=== PATIENT | female | born 1935 | race Caucasian/White ===

== ENCOUNTER 2017-10-01 13:12 | Emergency (ER) | payer MEDICARE ==
--- NOTE | 2017-10-01 16:17 | CT ---
CT BRAIN 10/01/17 PROVIDED CLINICAL HISTORY: Head pain status post injury. FINDINGS: No comparisons. The ventricular system appears normal in size and morphology. There is no evidence for intracranial hemorrhage or mass effect. Chronic microvascular ischemic changes are seen. The extracranial soft tis sues and osseous structures demonstrate no acute findings. IMPRESSION: No evidence for intracranial hemorrhage or mass effect. POS: [facility]
== END 2017-10-01 15:00 | disposition home or self-care (01) ==
LOC: ERS 13:12
DX: S00.511A Abrasion of lip, initial encounter (principal); S80.01XA Contusion of right knee, initial encounter; K21.9 Gastro-esophageal reflux disease without esophagitis; I10 Essential (primary) hypertension; F03.90 Unspecified dementia, unspecified severity, without behavioral disturbance, psychotic disturbance, mood disturbance, and anxiety; F41.9 Anxiety disorder, unspecified; F32.9 Major depressive disorder, single episode, unspecified; Z79.899 Other long term (current) drug therapy; W18.09XA Striking against other object with subsequent fall, initial encounter
CPT/HCPCS: 70450

== ENCOUNTER 2019-06-26 01:33 | Emergency (ER) | payer MEDICARE ==
[2019-06-26] MEDS ORDERED: Bacitracin 1 PK ONE (02:39)
--- NOTE | 2019-06-26 07:28 | RAD ---
EXAM: 3 views of the right hand COMPARISON: None HISTORY: Hand pain FINDINGS: 3 views of the hand shows no evidence of acute fracture or dislocation. Mild degenerative c hanges are seen in the interphalangeal joints of the fingers and in the first CMC joint. No soft tissue swelling is present. IMPRESSION: No evidence of acute osseous abnormality.
--- NOTE | 2019-06-26 08:08 | CT ---
PRELIMINARY REPORT/[facility]/EMERGENCY AFTER HOURS PROCEDURE: EXAM: CT Head Without Intravenous Contrast. CLINICAL HISTORY: Pt slipped and fell at [place] today with skin tear to right hand. 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 COMPARISON: None provided. FINDINGS: BRAIN: No acute intraparenchymal hemorrhage. No mass lesion. No CT evidence for acute territorial inf arct. No midline shift or extra-axial collection. Scattered and confluent periventricular and subcortical white matter hypodensities most compatible wi th chronic small vessel ischemic changes. There is focal hypodensity in the left occipital lobe sugg esting gliosis from old prior infarct and ex vacuo dilatation of the occipital horn of the left later al ventricle. Possible old lacunar infarct in the right basal ganglia. VENTRICLES: No hydrocephalus. Diffuse symmetric enlargement of the ventricles and sulci compatible w ith age-related cerebral atrophy, moderate for age. ORBITS: The orbits are unremarkable. SINUSES AND MASTOIDS: The paranasal sinuses and mastoid air cells are clear. SOFT TISSUES: No significant facial or scalp soft tissue swelling evident. No radiopaque foreign body is seen. BONES: No acute skull fracture. IMPRESSION: 1. No acute intracranial abnormality. No acute intracranial hemorrhage. 2. 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 3. Age-related cerebral atrophy and evidence of chronic microvascular ischemic change. ELECTRONICALLY SIGNED BY: Sidney Lunsford M.D. 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 If you recei ve this report in error, please call [facility] at [phone]. FINAL REPORT EMERGENT AFTER HOURS CT OF THE BRAIN WITHOUT CONTRAST: COMPARISON: 10/01/2017. FINDINGS/IMPRESSION: I agree with the findings and impression given in the preliminary report per [facility] physici an. Small-vessel ischemic disease without acute intracranial abnormality. POS: [facility]
== END 2019-06-26 03:24 ==
LOC: ERS 01:33
DX: S61.401A Unspecified open wound of right hand, initial encounter (principal); F03.90 Unspecified dementia, unspecified severity, without behavioral disturbance, psychotic disturbance, mood disturbance, and anxiety; I49.9 Cardiac arrhythmia, unspecified; I48.91 Unspecified atrial fibrillation; I10 Essential (primary) hypertension; K21.9 Gastro-esophageal reflux disease without esophagitis; F41.9 Anxiety disorder, unspecified; F32.9 Major depressive disorder, single episode, unspecified; Z79.899 Other long term (current) drug therapy; Z79.01 Long term (current) use of anticoagulants; W01.0XXA Fall on same level from slipping, tripping and stumbling without subsequent striking against object, initial encounter
CPT/HCPCS: 70450

== ENCOUNTER 2019-07-08 14:06 | Inpatient (IN) | payer BC, MEDICARE ==
--- NOTE | 2019-07-08 14:39 | CT ---
CT BRAIN NONCONTRAST: DATE: 07/08/2019 HISTORY: 84-year-old female status post acute head trauma from fall. COMPARISON: FINDINGS: There is no evidence of acute intra-axial or extra-axial hemorrhage. There is no midline shift or any other mass effect. There is no extra-axial fluid collection. There is no evidence of obstructive hydrocephalus. Calvarium is intact. There is diffuse brain parenchymal volume loss. There are low att enuation areas in the white matter. These are nonspecific, but in a patient of this age, they are probably chronic ischemic white matter changes due to microvascular atherosclerosis. Questionable sma ll old left occipital infarction versus a symmetrical region of chronic ischemic white matter change. Tiny old lacunar infarction at anterior limb of right internal capsule. No interval change ov erall. IMPRESSION: 1) No acute intracranial findings. 2) involutional changes and chronic ischemic white matter changes.
[2019-07-08] MEDS ORDERED: Senokot S 8.6-50 MG TAB PO PRN (19:21)
[2019-07-08] MEDS ORDERED: hydrALAZINE 20 MG/ML VIAL SLOW IVP PRN (21:35)
[2019-07-08] MEDS ORDERED: Famotidine 20 MG TAB ONE (21:52)
[2019-07-08] MEDS ORDERED: hydrALAZINE 20 MG/ML VIAL ONE (21:52)
[2019-07-08] MEDS: Famotidine 20 MG TAB PO SCH (21:59)
--- NOTE | 2019-07-08 22:11 | CT ---
CT Brain WO Con: 07/08/2019 10:00 PM CLINICAL HISTORY: Fall. IMAGING TECHNIQUE: Multiple CT images were obtained of the brain without IV contrast. COMPARISON: July 08, 2019 at 2:30 PM FINDINGS: Brain: No acute infarct, hemorrhage or midline shift is evident. Chronic ischemic changes similar ap pearing. Generalized cerebral and cerebellar atrophy is stable. Ventricles: Normal. No hydrocephalus. Skull: Intact. Visualized Paranasal sinuses: Clear. Mastoid air cells:Clear. Extracranial soft tissues:There is stable right frontal scalp contusion. IMPRESSION: No acute intracranial abnormality.
--- NOTE | 2019-07-09 00:40 | HP ---
CHIEF COMPLAINT: Head injury. PRIMARY CARE PHYSICIAN: Pan Briggs MD. HISTORY OF PRESENT ILLNESS: Ms. Garcia is a very pleasant 84-year-old, pleasantly confused female who was brought to the emergency room via EMS after she had a witnessed fall from her bed, transferring to a wheelchair. Hit the right occipital lobe on her dresser. No loss of consciousness. Does have a history of AFib and is on Eliquis. She denies any pain. Denies any nausea, vomiting, at baseline a and O x2 with no change of mental status. She does have a contusion to the scalp. No headache. Has an old skin tear to the right hand. Initial CT scan showed no acute findings. The patient will be admitted to observation for a repeat CT scan due to the patient being on Eliquis. REVIEW OF SYSTEMS: CONSTITUTIONAL: The patient denies any chills, fever. Denies any headache. Does report some minor change in vision, which is transient. ENT: Denies any sore throat. RESPIRATORY: Denies any cough. GI: Denies any abdominal pain, nausea, vomiting, diarrhea. Denies any dysuria. All other systems are reviewed and are negative unless mentioned above or in HPI. PAST MEDICAL HISTORY: Has an atrial defect, atrial fib, GERD, hypertension, dementia, osteoporosis. PAST SURGICAL HISTORY: Had a hysterectomy, some sort of cardiac possibly an ablation although family and patient were unsure. PSYCHIATRIC HISTORY: Anxiety, depression, dementia. SOCIAL HISTORY: Denies any alcohol or drug use. No smoking history. Lives at [facility]. PHYSICAL EXAMINATION: VITAL SIGNS: Blood pressure 160/89, pulse is 94, respiratory rate is 20, temperature is 98, pO2 sats are 95% on room air. GENERAL: The patient is alert. She is oriented to person and place. HEAD: Has a hematoma to the right occipital region. Normocephalic. EYES: Pupils equal, round, and reactive to light. Eyelids are normal to inspection. ENT: Mouth exam is normal. Mucous membranes are moist. NECK: Normal range of motion. Trachea is midline. RESPIRATORY/CHEST: Breath sounds are clear. Chest expansion is equal. CARDIOVASCULAR: Irregularly irregular. Heart sounds are normal. ABDOMEN: Nontender. Bowel sounds are heard. EXTREMITIES: Upper extremity; normal range of motion. No bony tenderness. Has a chronic right dorsal hand skin tear. Caregiver in the room reports that she HAD THIS ON A PRIOR INJURY. Lower extremity; normal range of motion. Motor strength is normal. Pedal pulses are normal. NEURO: The patient is oriented to person and place. Speech is normal. She is pleasantly confused. SKIN: Warm, dry, normal in color which is visualized. ALLERGIES: THE PATIENT IS ALLERGIC TO AMIODARONE, AUGMENTIN, BYSTOLIC, OMNICEF, PROPAFENONE. CURRENT MEDICATIONS: Which still need to be verified; 1. Protonix 40 mg 1 tablet once a day. 2. Flonase b.i.d. 3. Exelon patch 9.5 mg daily. 4. Eliquis 2.5 mg p.o. b.i.d. 5. Atorvastatin 10 mg p.o. once a day. 6. Tramadol 1 tab q.6 hours. 7. Vitamin B12 of 1000 mcg daily. 8. Melatonin 10 mg p.o. once a day. 9. Zofran 4 mg p.o. as needed. 10. Meclizine 12.5 mg p.o. b.i.d. 11. Premarin vaginal 3 times per week. 12. Robitussin 100 mg p.o. once a day. 13. Seroquel 25 mg p.o. once a day. 14. Tessalon 100 mg as needed. 15. Tylenol 500 mg p.o. q.8 hours as needed. 16. Xanax 0.25 once a day as needed. 17. Zoloft 25 mg p.o. once a day. PLAN AND ASSESSMENT: 1. Head injury, closed, on Eliquis. We will admit the patient to the observation unit. We will repeat the CT scan in 6 hours. Perform neuro checks q.4 hours. The patient remained stable and CT scan is negative. The patient most likely will be discharged home. 2. History of atrial fibrillation. This appears to be rate controlled. We will continue Eliquis once the CT scans are complete. 3. History of gastroesophageal reflux disease. We will continue home medications. 4. History of dementia. We will continue home medications. Check CBC comprehensive metabolic in the morning. Also check the urine. The patient had a urinary tract infection appears several weeks ago. We will make sure that it is clear. 5. Deep venous thrombosis and gastrointestinal prophylaxis, restart Eliquis once CT scans are completed. 6. Hospital course dependent on clinical findings. Job ID: [id number]
[2019-07-09 06:42] LABS: #Basophils 0.1 thou/uL (0.0-0.2); #Eosinphils 0.1 thou/uL (0.0-0.7); #Lymphocytes 1.9 thou/uL (1.20-3.40); #Monocytes 0.6 thou/uL (0.11-0.59); #Neutrophils 7.6 thou/uL (1.40-6.50); %Basophils 0.6 % (0.0-1.0); %Eosinophils 0.7 % (0.0-10.0); %Lymphocytes 18.5 % (21.0-51.0); %Monocytes 6.2 % (0.0-10.0); Mean Corpuscular Hemoglobin 31.9 pg (27.0-31.0); Mean Corpuscular Volume 99.8 fL (78.0-98.0); Mean Platelet Volume 6.4 fL (7.4-10.4); Platelet Count 362 thou/uL (130-400); RBC Distribution Width 11.8 % (11.5-14.5); Red Blood Cell (RBC) Count 4.39 mill/uL (4.20-5.40); White Blood Cell (WBC) Count 10.3 thou/uL (4.8-10.8)
[2019-07-09 06:59] LABS: Anion Gap 16 mmol/L (10-20); BUN (Urea Nitrogen) 10 mg/dL (9.8-20.1); Calc. Creatinine Clearance 0 mL/min (70-130); Calcium 9.2 mg/dL (7.8-10.44); Carbon Dioxide 21 mmol/L (23-31); Chloride 106 mmol/L (98-107); Estimated GFR-MDRD 80; Glucose 102 mg/dL (83-110); Potassium 3.3 mmol/L (3.5-5.1); Sodium 140 mmol/L (136-145)
[2019-07-09] MEDS ORDERED: Famotidine 20 MG TAB ONE (10:11)
[2019-07-09] MEDS: Famotidine 20 MG TAB PO SCH ×2 (10:14→20:37)
[2019-07-09] MEDS ORDERED: Potassium Chloride 20 MEQ TAB PO SCH (10:15)
--- NOTE | 2019-07-09 10:16 | PDOC.HOSPP ---
- Subjective Encounter Date: 07/09/19 Encounter Time: 11:00 Subjective: Patient with some dry heaves this AM. Demented and can't say anything besides that she feels bad. - Objective Result Diagrams: 07/09/19 06:23 07/09/19 06:23 Hospitalist ROS - Review of Systems ROS unobtainable: due to mental status - Medication Medications: Active Medications Generic Name Dose Route Start Last Admin Trade Name Freq PRN Reason Stop Dose Admin Famotidine 20 mg 07/08/19 21:00 07/09/19 10:14 Pepcid PO 20 mg BID MANISH Administration - Exam General Appearance: NAD, awake alert ENT: moist mucosa Heart: RRR, no murmur, no gallops, no rubs Respiratory: CTAB, no wheezes, no rales, no ronchi Gastrointestinal: soft, non-tender, non-distended, normal bowel sounds Skin: normal turgor, no lesions, no rashes Neurological: no focal deficits Psychiatric: normal affect, not oriented Hosp A/P (1) Head injury Code(s): S09.90XA - UNSPECIFIED INJURY OF HEAD, INITIAL ENCOUNTER Status: Acute (2) Atrial fibrillation Code(s): I48.91 - UNSPECIFIED ATRIAL FIBRILLATION Status: Acute (3) Chronic anticoagulation Code(s): Z79.01 - FEDERAL AGENT (CURRENT) USE OF ANTICOAGULANTS Status: Acute (4) GERD (gastroesophageal reflux disease) Code(s): K21.9 - GASTRO-ESOPHAGEAL REFLUX DISEASE WITHOUT ESOPHAGITIS Status: Chronic (5) Dementia Code(s): F03.90 - UNSPECIFIED DEMENTIA WITHOUT BEHAVIORAL DISTURBANCE Status: Chronic - Plan repeat CT head negative last night, but with new symptoms of nausea and vomiting today, will repeat CT scan. Patient likely has a concussion.
[2019-07-09 10:53] LABS: Bilirubin Negative (Negative); Blood, Urine Negative (Negative); Clarity Clear (Clear); Glucose, Urine (Dipstick) Normal (Negative); Leukocyte Negative Leu/uL (Negative); Nitrite Negative (Negative); Protein, Urine (Dipstick) 100 mg/dL (Neg-Trace); RBC/HPF 0-3 HPF (0-3); Squamous Epithelial None Seen HPF (0-3); Urobilinogen Normal mg/dL (Less than 2); WBC/HPF 0-3 HPF (0-3)
[2019-07-09 10:56] LABS: Bacteria/HPF 1+ HPF (None Seen)
[2019-07-09 10:57] LABS: Urine Culture Reflex Yes Yes
[2019-07-09] MEDS ORDERED: Ondansetron ODT 4 MG TAB ONE (11:00)
[2019-07-09] MEDS ORDERED: Pantoprazole 40 MG VIAL IVP SCH ×2 (11:00→12:00)
[2019-07-09] MEDS ORDERED: Pantoprazole 40 MG VIAL ONE (11:00)
[2019-07-09] MEDS: Ondansetron ODT 4 MG TAB PO PRN ×2 (11:08→20:37)
[2019-07-09] MEDS ORDERED: Sodium Chloride 0.9% (PF) 10 ML VIAL FS PRN (11:09)
--- NOTE | 2019-07-09 14:34 | CT ---
CT BRAIN WITHOUT CONTRAST: Date 07/09/2019 INDICATION: History of trauma, on blood thinners, with new onset nausea and vomiting. COMPARISON: Prior exam dated 07/08/2019 at 2202 hours. FINDINGS: No acute infarct, hemorrhage, or hydrocephalus is evident. Chronic small vessel white matter ischemic change is similar. Generalized cerebral and cerebellar atrophy is similar appearing. No midline shif t is evident. Mastoid air cells and paranasal sinuses are clear. There is a small right frontal scalp contusion. IMPRESSION: 1. No acute intracranial abnormality. 2. Right frontal scalp contusion. POS: [facility]
[2019-07-09 17:12] VITALS: BMI 22.2
--- NOTE | 2019-07-10 08:40 | PDOC.HOSPP ---
- Subjective Encounter Date: 07/10/19 Encounter Time: 10:30 Subjective: Patient with continued vomiting yesterday, didn't hold anything down. Was given IV fluid bolus for her tachycardia and that is a bit better this AM, but still a little tachycardic. Vomited again this AM and hasn't tolerated oral fluids. Will start IV fluids. - Objective Vital Signs & Weight: Vital Signs (12 hours) Temp Pulse Resp BP Pulse Ox 07/10/19 07:48 98.6 F 99 18 158/99 H 96 07/10/19 04:00 97.2 F L 103 H 22 H 162/99 H 94 L 07/09/19 23:59 98.8 F 117 H 149/102 H 95 Weight Weight 121 lb 9.6 oz Result Diagrams: 07/09/19 06:23 07/09/19 06:23 Hospitalist ROS - Review of Systems ROS unobtainable: due to mental status - Medication Medications: Active Medications Generic Name Dose Route Start Last Admin Trade Name Freq PRN Reason Stop Dose Admin Famotidine 20 mg 07/08/19 21:00 07/09/19 20:37 Pepcid PO 20 mg BID MANISH Administration Ondansetron HCl 4 mg 07/09/19 10:58 07/09/19 20:37 Zofran Odt PO 4 mg Q6H PRN Administration Nausea/Vomiting - Exam General Appearance: NAD, awake alert Heart: RRR, no murmur, no gallops, no rubs Respiratory: CTAB, no wheezes, no rales, no ronchi Gastrointestinal: soft, non-tender, non-distended, normal bowel sounds Psychiatric: normal affect, not oriented Hosp A/P (1) Head injury Code(s): S09.90XA - UNSPECIFIED INJURY OF HEAD, INITIAL ENCOUNTER Status: Acute (2) Atrial fibrillation Code(s): I48.91 - UNSPECIFIED ATRIAL FIBRILLATION Status: Chronic (3) Chronic anticoagulation Code(s): Z79.01 - OIL WELL PUMPER (CURRENT) USE OF ANTICOAGULANTS Status: Chronic (4) GERD (gastroesophageal reflux disease) Code(s): K21.9 - GASTRO-ESOPHAGEAL REFLUX DISEASE WITHOUT ESOPHAGITIS Status: Chronic (5) Dementia Code(s): F03.90 - UNSPECIFIED DEMENTIA WITHOUT BEHAVIORAL DISTURBANCE Status: Chronic - Plan Patient with evidence of a concussion. Continued N/V and intolerance of oral fluids while on observation. Needed IV fluids yesterday and having to restart today. Will switch to inpatient status.
[2019-07-10] MEDS: Famotidine 20 MG TAB PO SCH (10:20)
[2019-07-10] MEDS: Ondansetron ODT 4 MG TAB PO PRN (10:20)
[2019-07-10] MEDS ORDERED: traMADol HCl 50 MG TAB PO PRN (10:40)
[2019-07-10] MEDS ORDERED: ONDANSETRON HCL 4 MG PO PRN (10:40)
[2019-07-10] MEDS ORDERED: Meclizine HCl 12.5 MG TAB PO PRN (10:40)
[2019-07-10] MEDS ORDERED: Benzonatate 100 MG CAP PO PRN (10:40)
[2019-07-10] MEDS ORDERED: Estrogens, Conjugated 30 GM TUBE VAG SCH (10:45)
[2019-07-10] MEDS ORDERED: Pantoprazole 40 MG VIAL IVP SCH (10:45)
[2019-07-10] MEDS ORDERED: Ondansetron ODT 4 MG TAB PO PRN (10:53)
[2019-07-10] MEDS ORDERED: Sodium Chloride 0.45% 1,000 ML IV SCH (11:00)
[2019-07-10 11:03] LABS: #Lymphocytes 1.1 thou/uL (1.20-3.40); #Monocytes 0.7 thou/uL (0.11-0.59); #Neutrophils 11.7 thou/uL (1.40-6.50); %Basophils 0.2 % (0.0-1.0); %Eosinophils 0.3 % (0.0-10.0); %Lymphocytes 7.9 % (21.0-51.0); %Monocytes 5.4 % (0.0-10.0); %Neutrophils 86.2 % (42.0-75.0); Hemoglobin 13.8 g/dL (12.0-16.0); Mean Corpuscular HGB CONC 32.8 g/dL (32.0-36.0); Mean Corpuscular Hemoglobin 32.4 pg (27.0-31.0); Mean Corpuscular Volume 98.7 fL (78.0-98.0); Mean Platelet Volume 6.5 fL (7.4-10.4); Platelet Count 326 thou/uL (130-400); Red Blood Cell (RBC) Count 4.27 mill/uL (4.20-5.40); White Blood Cell (WBC) Count 13.6 thou/uL (4.8-10.8)
[2019-07-10 11:16] LABS: ALT (SGPT) 14 U/L (8-55); AST (SGOT) 31 U/L (5-34); Albumin 4.1 g/dL (3.4-4.8); Alkaline Phosphatase 101 U/L (40-110); Anion Gap 11 mmol/L (10-20); BUN (Urea Nitrogen) 12 mg/dL (9.8-20.1); Bilirubin, Total 1.3 mg/dL (0.2-1.2); Calc. Creatinine Clearance 49 mL/min (70-130); Calcium 9.1 mg/dL (7.8-10.44); Carbon Dioxide 24 mmol/L (23-31); Chloride 106 mmol/L (98-107); Estimated GFR-MDRD 74; Globulin 3.1 g/dL (2.4-3.5); Glucose 125 mg/dL (83-110); Potassium 3.4 mmol/L (3.5-5.1); Protein, Total 7.2 g/dL (6.0-8.3); Sodium 138 mmol/L (136-145)
[2019-07-10] MEDS: Rivastigmine 9.5mg/24 Hour PATCH TOP SCH (12:01)
[2019-07-10] MEDS: ALPRAZolam 0.25 MG TAB PO PRN (13:22)
[2019-07-10] MEDS: Acetaminophen 325 MG TAB PO PRN (14:31)
[2019-07-10] MEDS ORDERED: Iopamidol 370 76% 100 ML VIAL ONE (14:49)
[2019-07-10] MEDS ORDERED: Sodium Chloride 0.9% 1,000 ML IV SCH (15:00)
[2019-07-10] MEDS ORDERED: Sodium Chloride 0.65% Nasal 44 ML BOT EA NARE SCH (15:00)
--- NOTE | 2019-07-10 15:30 | RAD ---
Chest AP view INDICATION: Fever COMPARISON: None FINDINGS: Lungs:The lungs are clear Cardiac silhouette:The patient is rotated to the left with associated thoracolumbar scoliosis centeri ng cardiomediastinal silhouette. There is mild suspected cardiomegaly. Pulmonary vasculature:Normal Pleural spaces:No pleural effusion or pneumothorax is demonstrated. Upper abdomen:No abnormality seen. Osseous structures: No acute osseous abnormality. Additional findings:None. IMPRESSION: Mild cardiomegaly without overt evidence of cardiac decompensation. Thoracolumbar scolios is.
--- NOTE | 2019-07-10 16:25 | PDOC.EVN ---
Event Note - Event Note Event Note: Called by nurse to see patient due to swelling anterior neck. Patient with significant swelling around the trachea and larnyx, soft, not warm, not red, no bruised. No swelling anywhere else. More on the left side. No bruising or skin breaks. Laryngeal cartilage has some crepitation with movement. Patient not in respiratory distress or obvious pain. Tachycardic. Fever improved. Concern for undiscovered trauma from fall prior to coming in. Could be hematoma with fracture. No airway compromise at this time. Infection from disrupted trachea or esophagus also possible. Again, no hx consistent with such an injury and no external trauma evidence aside from the contusion to the right top of head. Will place a cervical collar. Get stat CT neck and c-spine. Spoke with son and expressed the gravity of an injury like this and the possibility of progression , air way compromise, or cord injury. He expressed understanding. States most important thing is keeping her comfortable. Doesn't want intubation even if airway compromise, but keep comfortable. Remains DNAR. Will monitor closely and followup on imaging and lab.
[2019-07-10] MEDS ORDERED: Meropenem 1 GM in Sodium Chloride 0.9% 100 ML IVPB SCH (17:00)
[2019-07-10] MEDS: Vancomycin HCl 1 GM in Premix Bag 1 BAG IVPB SCH (17:43)
[2019-07-10] MEDS: Sodium Chloride 0.65% Nasal 44 ML BOT EA NARE SCH (17:49)
--- NOTE | 2019-07-10 18:05 | CT ---
CT Neck Soft Tissue W Con History: Trauma. Swelling. Fever. Comparison: None. Findings: The cervical spine alignment is normal. No acute fracture. No listhesis. Common carotid arteries are patent. Limited evaluation of the internal carotid arteries are patent. The clavicles are intact. Mild bronchiectasis in the upper lobes. No consolidation. Visualized transverse aorta is unremarkable. The parotid glands are symmetric. The submandibular glands are unremarkable. No cervical adenopathy. The prevertebral soft tissues are unremarkable. Paraspinal musculature is symmetric. Impression: Unremarkable CT examination of the neck. No acute abnormality.
--- NOTE | 2019-07-10 18:34 | CT ---
ABDOMEN CT WITH CONTRAST: PELVIC CT WITH CONTRAST: 07/10/19 HISTORY: Fever. Sepsis, nausea and vomiting. FINDINGS: ABDOMEN CT: Dependent atelectatic changes and scarring in the lung bases. Normal heart size. No significant pericardial fluid. The visualized aorta has a normal caliber. No pe riaortic fat stranding. Portal vein is patent. Gallbladder is unremarkable. Liver, spleen, pancreas, and adrenal glands have appropriate attenuation and enhancement. No gastrohepatic, retrocrural or periportal lymphadenopathy. Decreased visceral fat limits evaluation for inflammatory change. No mesenteric mass, lymphadenopathy , free air or free fluid. Symmetric enhancement of the kidneys. Bilaterally, no obstructive uropathy. Nonobstructing 0.8 cm calculus in the right renal pelvis. Limited evaluation of the alimentary canal by lack of oral contrast. No evidence of small bowel obstr uction. Ileocecal junction is normal. Normal caliber appendix. Scattered fecal material in a nondiste nded, nondilated colon. CT PELVIS: Urinary bladder is unremarkable. No pelvic mass, lymphadenopathy, free air or free fluid. Uterus is s urgically absent. There are no lytic or blastic lesions in the osseous structures. There is mild rightward curvature of the distal thoracic spine and leftward curvature of the lumbar spine. Vacuum disc phenomenon is note d at the L3-L4 and L5-S1 levels. IMPRESSION: No acute abnormalities in the abdomen or pelvis. POS: [facility]
[2019-07-10] MEDS: MEROPENEM 1 GM/50 ML 1 GM in Premix Bag 1 BAG IVPB SCH (19:48)
[2019-07-10] MEDS: Sodium Chloride 0.9% 1,000 ML IV SCH (19:48)
[2019-07-10] MEDS ORDERED: Non-Formulary Item 1 EACH (Melatonin [Melatonin] 10 MG) PO SCH (21:00)
[2019-07-10] MEDS ORDERED: Apixaban 2.5 MG TAB PO SCH (21:00)
[2019-07-10] MEDS: Melatonin 3 MG TAB PO SCH (21:04)
[2019-07-10] MEDS: Atorvastatin Calcium 10 MG TAB PO SCH (21:04)
[2019-07-10] MEDS ORDERED: MEROPENEM 1 GM/50 ML 1 GM in Premix Bag 1 BAG IVPB SCH (22:00)
[2019-07-11] MEDS: Sodium Chloride 0.65% Nasal 44 ML BOT EA NARE SCH ×4 (01:07→20:38)
[2019-07-11] MEDS: MEROPENEM 1 GM/50 ML 1 GM in Premix Bag 1 BAG IVPB SCH ×2 (01:07→16:00)
[2019-07-11] MEDS: ALPRAZolam 0.25 MG TAB PO PRN (01:42)
[2019-07-11 05:04] LABS: #Basophils 0.1 thou/uL (0.0-0.2); #Eosinphils 0.1 thou/uL (0.0-0.7); #Lymphocytes 1.2 thou/uL (1.20-3.40); #Neutrophils 15.8 thou/uL (1.40-6.50); %Basophils 0.4 % (0.0-1.0); %Eosinophils 0.5 % (0.0-10.0); %Lymphocytes 6.5 % (21.0-51.0); %Monocytes 5.6 % (0.0-10.0); Hemoglobin 11.9 g/dL (12.0-16.0); Mean Corpuscular HGB CONC 32.5 g/dL (32.0-36.0); Mean Corpuscular Hemoglobin 32.4 pg (27.0-31.0); Mean Corpuscular Volume 99.8 fL (78.0-98.0); Mean Platelet Volume 6.5 fL (7.4-10.4); Platelet Count 237 thou/uL (130-400); Red Blood Cell (RBC) Count 3.68 mill/uL (4.20-5.40); White Blood Cell (WBC) Count 18.1 thou/uL (4.8-10.8)
[2019-07-11 05:22] LABS: Anion Gap 10 mmol/L (10-20); BUN (Urea Nitrogen) 12 mg/dL (9.8-20.1); Calc. Creatinine Clearance 45 mL/min (70-130); Calcium 8.3 mg/dL (7.8-10.44); Carbon Dioxide 25 mmol/L (23-31); Chloride 107 mmol/L (98-107); Estimated GFR-MDRD 67; Glucose 85 mg/dL (83-110); Potassium 3.4 mmol/L (3.5-5.1); Sodium 139 mmol/L (136-145)
--- NOTE | 2019-07-11 08:16 | PDOC.HOSPP ---
- Subjective Encounter Date: 07/11/19 Encounter Time: 09:50 Subjective: Patient much better this AM. No further N/V. No fever today. Much more interactive today per family. Swelling anterior neck improving. No trouble breathing. No rash or swelling anywhere else. - Objective Vital Signs & Weight: Vital Signs (12 hours) Temp Pulse Resp BP Pulse Ox 07/11/19 07:47 98.9 F 109 H 15 128/64 93 L 07/11/19 04:00 98.9 F 109 H 18 148/79 H 95 07/11/19 00:00 98.9 F 98 20 140/72 96 Weight Admit Weight 121 lb 9.6 oz Weight 121 lb 9.6 oz I&O: 07/10/19 07/11/19 07/12/19 06:59 06:59 06:59 Intake Total 300 1610 Output Total 300 Balance 300 1310 Result Diagrams: 07/11/19 04:46 07/11/19 04:46 Hospitalist ROS - Review of Systems ROS unobtainable: due to mental status - Medication Medications: Active Medications Generic Name Dose Route Start Last Admin Trade Name Freq PRN Reason Stop Dose Admin Acetaminophen 650 mg 07/08/19 19:21 07/10/19 14:31 Tylenol PO 650 mg Q4H PRN Administration Headache/Fever/Mild Pain (1-3) Alprazolam 0.25 mg 07/10/19 10:40 07/11/19 01:42 Xanax PO 0.25 mg PRN PRN Administration Anxiety Atorvastatin Calcium 10 mg 07/10/19 21:00 07/10/19 21:04 Lipitor PO 10 mg HS MANISH Administration Vancomycin HCl 1 gm/ Device 200 mls @ 200 mls/hr 07/10/19 16:00 07/10/19 17: 43 IVPB 200 mls 1600 MANISH Administration Meropenem 1 gm/ Device 50 mls @ 100 mls/hr 07/10/19 18:00 07/11/19 01:07 IVPB 50 mls 0200,1000,1800 MANISH Administration Sodium Chloride 1,000 mls @ 120 mls/hr 07/10/19 17:45 07/10/19 19:48 Normal Saline 0.9% IV 1,000 mls .Q8H20M MANISH Administration Melatonin 9 mg 07/10/19 21:00 07/10/19 21:04 Melatonin PO 9 mg HS MANISH Administration Ondansetron HCl 4 mg 07/09/19 10:58 07/10/19 10:20 Zofran Odt PO 4 mg Q6H PRN Administration Nausea/Vomiting Quetiapine Fumarate 25 mg 07/10/19 21:00 07/10/19 21:04 Seroquel PO 25 mg HS MANISH Administration Rivastigmine 9.5 mg 07/10/19 12:00 07/10/19 12:01 Exelon Patch TOP 9.5 mg Q24H MANISH Administration Sodium Chloride 10 ml 07/10/19 21:00 07/10/19 21:05 Flush - Normal Saline IVF Not Given Q12HR MANISH Sodium Chloride 0 ml 07/10/19 15:00 07/11/19 01:07 [place] Nasal [place] 0.65% EA NARE Not Given TID MANISH - Exam General Appearance: NAD, awake alert ENT: moist mucosa ENT - other findings: swelling over laryngeal cartilage mildly decreased, still not red or warm Heart: RRR, no murmur, no gallops, no rubs Respiratory: CTAB, no wheezes, no rales, no ronchi Gastrointestinal: soft, non-tender, non-distended, normal bowel sounds Psychiatric: normal affect, not oriented Hosp A/P (1) SIRS (systemic inflammatory response syndrome) Code(s): R65.10 - SIRS OF NON-INFECTIOUS ORIGIN W/O ACUTE ORGAN DYSFUNCTION Status: Acute (2) Concussion Code(s): S06.0X9A - CONCUSSION W LOSS OF CONSCIOUSNESS OF UNSP DURATION, INIT Status: Acute (3) Atrial fibrillation Code(s): I48.91 - UNSPECIFIED ATRIAL FIBRILLATION Status: Chronic (4) Chronic anticoagulation Code(s): Z79.01 - VIAL GAUGER (CURRENT) USE OF ANTICOAGULANTS Status: Chronic (5) GERD (gastroesophageal reflux disease) Code(s): K21.9 - GASTRO-ESOPHAGEAL REFLUX DISEASE WITHOUT ESOPHAGITIS Status: Chronic (6) Dementia Code(s): F03.90 - UNSPECIFIED DEMENTIA WITHOUT BEHAVIORAL DISTURBANCE Status: Chronic (7) Neck swelling Code(s): R22.1 - LOCALIZED SWELLING, MASS AND LUMP, NECK Status: Acute - Plan Patient with fever and leukocytosis yesterday afternoon. No source. CXR clear. UCx negative. Started on Vanc and Meropenem. BCx pending. Soft tissue swelling anterior throat, CT neck neg for fluid collection or evidence trauma. No mucus membrane edema/ respiratory difficulty to indicate allergic reaction and wasn't on any new meds when the swelling started. Abx started later. Uncertain eitiology. Son reiterated DNAR and no invasive intervention/surgery. May consider ENT consult for their thoughts on the swelling in setting of SIRS if doesn't continue improving. Nausea and vomiting resolving, CT abdomen normal, will consider U/S RUQ but with symptoms improving will hold off for now.
[2019-07-11] MEDS ORDERED: Fluticasone Propionate Nasal Spray 16 gm Bottle NASAL SCH (09:00)
[2019-07-11] MEDS ORDERED: Non-Formulary Item 1 EACH (Sertraline Hcl [Sertraline Hcl] 50 MG) PO SCH (09:00)
[2019-07-11] MEDS: Sodium Chloride 0.9% 1,000 ML IV SCH ×3 (09:08→18:15)
[2019-07-11] MEDS: Cyanocobalamin (Vitamin B-12) 1,000 MCG TAB PO SCH (10:27)
[2019-07-11] MEDS: Fluticasone Propionate Nasal Spray 16 gm Bottle NASAL SCH (11:05)
[2019-07-11] MEDS: Rivastigmine 9.5mg/24 Hour PATCH TOP SCH (11:07)
[2019-07-11] MEDS: Acetaminophen 325 MG TAB PO PRN ×2 (11:24→20:43)
[2019-07-11] MEDS: Vancomycin HCl 1 GM in Premix Bag 1 BAG IVPB SCH (16:18)
[2019-07-11] MEDS: Melatonin 3 MG TAB PO SCH (20:38)
[2019-07-11] MEDS: Atorvastatin Calcium 10 MG TAB PO SCH (20:38)
[2019-07-11] MEDS ORDERED: Meropenem 1 GM in Sodium Chloride 0.9% 100 ML IVPB SCH (21:00)
[2019-07-12] MEDS: Sodium Chloride 0.9% 1,000 ML IV SCH ×2 (04:37→13:09)
[2019-07-12] MEDS: MEROPENEM 1 GM/50 ML 1 GM in Premix Bag 1 BAG IVPB SCH ×2 (04:38→15:32)
[2019-07-12] MEDS: Acetaminophen 325 MG TAB PO PRN (04:43)
--- NOTE | 2019-07-12 08:52 | PDOC.HOSPP ---
- Subjective Encounter Date: 07/12/19 Encounter Time: 11:20 Subjective: Patient clinically improving. No complaints. Pleasantly demented. No vomiting. Eating well. Tmax 100 with mild tachycardia now resolved. Swelling on neck better. - Objective Vital Signs & Weight: Vital Signs (12 hours) Temp Pulse Resp BP Pulse Ox 07/12/19 07:19 98.6 F 91 16 146/85 H 92 L 07/12/19 04:00 100 F H 109 H 18 173/88 H 93 L 07/12/19 00:00 99 F 113 H 18 157/107 H 93 L Weight Admit Weight 121 lb 9.6 oz Weight 121 lb 9.6 oz I&O: 07/11/19 07/12/19 07/13/19 06:59 06:59 06:59 Intake Total 1610 1861.4 Output Total 300 450 Balance 1310 1411.4 Result Diagrams: 07/11/19 04:46 07/11/19 04:46 Hospitalist ROS - Review of Systems ROS unobtainable: due to mental status - Medication Medications: Active Medications Generic Name Dose Route Start Last Admin Trade Name Freq PRN Reason Stop Dose Admin Acetaminophen 650 mg 07/08/19 19:21 07/12/19 04:43 Tylenol PO 650 mg Q4H PRN Administration Headache/Fever/Mild Pain (1-3) Alprazolam 0.25 mg 07/10/19 10:40 07/11/19 01:42 Xanax PO 0.25 mg PRN PRN Administration Anxiety Atorvastatin Calcium 10 mg 07/10/19 21:00 07/11/19 20:38 Lipitor PO 10 mg HS MANISH Administration Cyanocobalamin 1,000 mcg 07/11/19 09:00 07/11/19 10:27 Vitamin B-12 PO Not Given DAILY MANISH Fluticasone Propionate 0 gm 07/11/19 09:00 07/11/19 11:05 Flonase Nasal [place] NASAL Not Given DAILY MANISH Vancomycin HCl 1 gm/ Device 200 mls @ 200 mls/hr 07/10/19 16:00 07/11/19 16: 18 IVPB 200 mls 1600 MANISH Administration Sodium Chloride 1,000 mls @ 120 mls/hr 07/10/19 17:45 07/12/19 04:37 Normal Saline 0.9% IV 1,000 mls .Q8H20M MANISH Administration Meropenem 1 gm/ Device 50 mls @ 200 mls/hr 07/12/19 04:00 07/12/19 04:38 IVPB 50 mls 0400,1600 MANISH Administration Melatonin 9 mg 07/10/19 21:00 07/11/19 20:38 Melatonin PO 9 mg HS MANISH Administration Ondansetron HCl 4 mg 07/09/19 10:58 07/10/19 10:20 Zofran Odt PO 4 mg Q6H PRN Administration Nausea/Vomiting Pantoprazole Sodium 40 mg 07/11/19 09:00 07/11/19 10:20 Protonix PO 40 mg DAILY MANISH Administration Quetiapine Fumarate 25 mg 07/10/19 21:00 07/11/19 20:38 Seroquel PO 25 mg HS MANISH Administration Rivastigmine 9.5 mg 07/10/19 12:00 07/11/19 11:07 Exelon Patch TOP 9.5 mg Q24H MANISH Administration Sertraline HCl 50 mg 07/11/19 09:00 07/11/19 10:20 Zoloft PO 50 mg DAILY MANISH Administration Sodium Chloride 10 ml 07/10/19 21:00 07/11/19 20:38 Flush - Normal Saline IVF Not Given Q12HR MANISH Sodium Chloride 0 ml 07/10/19 15:00 07/11/19 20:38 [place] Nasal [place] 0.65% EA NARE Not Given TID MANISH - Exam General Appearance: NAD, awake alert ENT: moist mucosa ENT - other findings: minimal anterior throat soft tissue swelling, much improved Heart: RRR, no murmur, no gallops, no rubs Respiratory: CTAB, no wheezes, no rales, no ronchi Gastrointestinal: soft, non-tender, non-distended, normal bowel sounds Gastrointestinal - other findings: neg garcia's Extremities: no edema Musculoskeletal - other findings: moving all extremities equally Psychiatric: normal affect, not oriented Hosp A/P (1) Bacteremia due to Gram-negative bacteria Code(s): R78.81 - BACTEREMIA Status: Acute (2) Sepsis Code(s): A41.9 - SEPSIS, UNSPECIFIED ORGANISM Status: Acute (3) Concussion Code(s): S06.0X9A - CONCUSSION W LOSS OF CONSCIOUSNESS OF UNSP DURATION, INIT Status: Acute (4) Atrial fibrillation Code(s): I48.91 - UNSPECIFIED ATRIAL FIBRILLATION Status: Chronic (5) Chronic anticoagulation Code(s): Z79.01 - RETIREMENT (CURRENT) USE OF ANTICOAGULANTS Status: Chronic (6) GERD (gastroesophageal reflux disease) Code(s): K21.9 - GASTRO-ESOPHAGEAL REFLUX DISEASE WITHOUT ESOPHAGITIS Status: Chronic (7) Dementia Code(s): F03.90 - UNSPECIFIED DEMENTIA WITHOUT BEHAVIORAL DISTURBANCE Status: Chronic (8) Neck swelling Code(s): R22.1 - LOCALIZED SWELLING, MASS AND LUMP, NECK Status: Acute - Plan Patient with fever and leukocytosis 07/10/19. No source. CXR clear. UCx negative. Started on Vanc and Meropenem. BCx growing gram neg rods. Soft tissue swelling anterior throat, CT neck neg for fluid collection or evidence trauma. No mucus membrane edema/ respiratory difficulty to indicate allergic reaction and wasn't on any new meds when the swelling started. Abx started later. Uncertain eitiology. Son reiterated DNAR and no invasive intervention/surgery. Improved some. Nausea and vomiting resolved, CT abdomen normal. Patient clinically improving. Uncertain source for bacteremia. Consulting Dr. Gutierrez. Likely clinically ready for d/c tomorrow, but uncertain what type of abx and for how long. Awaiting ID and sens for bacteria in blood. No evidence bleeding. Will resume Eliquis for paroxysmal Afib.
[2019-07-12] MEDS: Cyanocobalamin (Vitamin B-12) 1,000 MCG TAB PO SCH (08:56)
[2019-07-12] MEDS: Sodium Chloride 0.65% Nasal 44 ML BOT EA NARE SCH ×3 (08:57→20:09)
[2019-07-12] MEDS: Fluticasone Propionate Nasal Spray 16 gm Bottle NASAL SCH (09:07)
[2019-07-12] MEDS: Rivastigmine 9.5mg/24 Hour PATCH TOP SCH (13:09)
[2019-07-12 16:15] LABS: Vancomycin, Trough 5.6 ug/mL
[2019-07-12] MEDS: Vancomycin HCl 1 GM in Premix Bag 1 BAG IVPB SCH (16:41)
[2019-07-12] MEDS ORDERED: Vancomycin HCl 1 GM in Premix Bag 1 BAG IVPB SCH (17:00)
[2019-07-12] MEDS: Melatonin 3 MG TAB PO SCH (20:08)
[2019-07-12] MEDS: Apixaban 2.5 MG TAB PO SCH (20:08)
[2019-07-12] MEDS: Atorvastatin Calcium 10 MG TAB PO SCH (20:08)
--- NOTE | 2019-07-13 00:31 | CON ---
DATE OF CONSULTATION: 07/12/2019 REASON FOR CONSULTATION: Bacteremia. HISTORY OF PRESENT ILLNESS: 84-year-old, looks like first admission to this hospital with history of some significant cognitive dysfunction, probably some element of Alzheimer disease or vascular dementia probably more likely vascular dementia due to her chronic atrial fibrillation. She also has hypertension and lives in an assisted living facility and apparently became confused, fell down and hit her head. She had been on Eliquis, so repeat CT scans did not show any hemorrhage, but then she developed a fever and before that about 2 week, people in the assisted living facility felt that she might have urine infection and ordered urinalysis. I do have urinalysis from June 28, which is probably this one that the daughters are referring to. The urine culture actually had 50,075 CFUs of mixed skin rosemary. She was reportedly given some oral antimicrobial therapy for 5 days, but then persisted to develop some fever and abdominal complaints, did not have reported diarrhea though, she was then admitted. She is in the neuro unit because of mental state changes. CT abdomen and pelvis, brain CT, and soft tissue neck CT were not particularly remarkable. CT abdomen was done with contrast intravenously, but no oral contrast. The colon did not appear dilated. Currently, she is awake, but she is confused, though may not be really confused as she recognizes her daughters, but she has obvious cognitive issues with recall impairment, speech impairment, difficulty with finding words, and so on. REVIEW OF SYSTEMS: Therefore is limited in its reliability, but she denied headaches. Denied chest pain or abdominal pain, although this is not really clear to me or to the daughters if she truly had pain in the abdomen or not. She sometimes would point her right wrist, which had an IV access which I think she was concerned with. No joint symptoms. No seizure activity. PAST MEDICAL HISTORY: Atrial fibrillation, likely vascular dementia; GERD; hypertension. PAST SURGICAL HISTORY: Hysterectomy, probably had cardiac ablation but is not clear. SOCIAL HISTORY: Never smoker. Lives at [facility]. FAMILY HISTORY: Noncontributory. CURRENT MEDICATIONS: She is on; 1. Meropenem. 2. Vancomycin. 3. Eliquis. 4. Xanax. 5. Lipitor. 6. Tessalon. 7. Premarin. 8. Flonase. PHYSICAL EXAMINATION: VITAL SIGNS: T-max 102.7, BP 180/98, pulse 112, respirations 20, O2 saturation 97. SKIN: Exam shows some bruising in the right hand, but no other abnormalities. It is probably related to the fall. Peripheral IV access, she is voiding normally. No lymphadenopathy. HEENT: Ocular movements conjugate. Oral cavity with few remaining teeth with no inflammatory changes. NECK: Apparently, there was a description of swelling in the anterior neck region, but that has resolved. Neck is supple. No jugular vein distention. LUNGS: Symmetric. Clear breath sounds. HEART: S1 and S2, regular rate. No murmurs. No S3 or S4. ABDOMEN: Soft. No obvious tenderness on percussion or palpation. No organomegaly or bladder distention. Bowel sounds are increased though. No joint inflammatory activity. No edema. Pulses 1+ in dorsalis pedis. Plantar responses are flexor. No clonus. She is awake. Knows her name. She could not tell me the daughter's names. She could not tell me that she was in the hospital, again could not recognize the setting where she was at. LABORATORY STUDIES: Urinalysis with 0-3 wbc's and white cell count is up to 18,000, hemoglobin 11.9, platelets 237 with 87% neutrophils. Creatinine 0.82, bilirubin 1.3. Other liver elements normal. Albumin 4.1. Microbiology with 2 sets of blood cultures with gram-negative aki to be identified, susceptibility tested. The Verigene test was not able to match any of the usual pathogens including enteropathogens or Pseudomonas Klebsiella, etc. ASSESSMENT: Vascular dementia with history of atrial fibrillation on Eliquis, recent fall episode in what appears to be a gastroenteritis, probably with gram-negative bacteremia. DISCUSSION: The differential diagnosis includes Salmonella versus Campylobacter, possibility of C difficile with bacteremia is another consideration since she was exposed to antimicrobials within the past 2 weeks. Urinary tract inflammatory process is not likely in view of her normal urinalysis, cholecystitis, inflammatory bowel disease including diverticulitis, appendicitis do not appear likely vis-a-vis the findings in the CT of the abdomen. CT of abdomen was done without oral contrast, so some findings that may have been missed by the study. I think the identification of the organism will be of paramount importance in the final diagnosis here. Continue meropenem for the time being. Job ID: [id number]
[2019-07-13] MEDS: MEROPENEM 1 GM/50 ML 1 GM in Premix Bag 1 BAG IVPB SCH (04:37)
[2019-07-13] MEDS: Sodium Chloride 0.9% 1,000 ML IV SCH ×2 (04:38→04:39)
[2019-07-13 04:52] LABS: #Eosinphils 0.3 thou/uL (0.0-0.7); #Lymphocytes 1.9 thou/uL (1.20-3.40); #Neutrophils 5.9 thou/uL (1.40-6.50); %Basophils 0.5 % (0.0-1.0); %Eosinophils 2.9 % (0.0-10.0); %Lymphocytes 20.6 % (21.0-51.0); %Monocytes 10.5 % (0.0-10.0); %Neutrophils 65.5 % (42.0-75.0); Hemoglobin 12.6 g/dL (12.0-16.0); Mean Corpuscular HGB CONC 32.8 g/dL (32.0-36.0); Mean Corpuscular Hemoglobin 32.2 pg (27.0-31.0); Mean Corpuscular Volume 98.2 fL (78.0-98.0); Mean Platelet Volume 6.8 fL (7.4-10.4); Platelet Count 267 thou/uL (130-400); RBC Distribution Width 11.8 % (11.5-14.5); White Blood Cell (WBC) Count 9.1 thou/uL (4.8-10.8)
[2019-07-13 05:12] LABS: ALT (SGPT) 32 U/L (8-55); AST (SGOT) 41 U/L (5-34); Albumin 3.3 g/dL (3.4-4.8); Alkaline Phosphatase 112 U/L (40-110); Anion Gap 9 mmol/L (10-20); BUN (Urea Nitrogen) 6 mg/dL (9.8-20.1); Bilirubin, Total 0.8 mg/dL (0.2-1.2); Calc. Creatinine Clearance 55 mL/min (70-130); Calcium 8.4 mg/dL (7.8-10.44); Carbon Dioxide 29 mmol/L (23-31); Chloride 102 mmol/L (98-107); Estimated GFR-MDRD 83; Globulin 2.8 g/dL (2.4-3.5); Glucose 95 mg/dL (83-110); Protein, Total 6.1 g/dL (6.0-8.3); Sodium 137 mmol/L (136-145)
[2019-07-13 05:21] LABS: Potassium 2.8 mmol/L (3.5-5.1)
[2019-07-13] MEDS ORDERED: Potassium Chloride 20 MEQ in Premix Bag 1 BAG IVPB SCH (05:45)
[2019-07-13] MEDS ORDERED: Potassium Chloride 20 MEQ TAB PO SCH ×2 (05:45→12:15)
--- NOTE | 2019-07-13 08:04 | ULT ---
RIGHT UPPER QUADRANT ABDOMINAL ULTRASOUND: HISTORY: Right upper quadrant abdominal pain with possible cholecystitis. TECHNIQUE: Multiplanar, bruner scale, and color Doppler images were obtained in a right upper quadrant abdominal u ltrasound. FINDINGS: The liver is normal in echogenicity without focal lesions or intrahepatic duct dilatation. The gallb ladder is normal without stones, sludge, gallbladder wall thickening, or pericholecystic fluid. The common bile duct is normal measuring 5 mm. The visualized portions of the pancreas are unremarkable. The right kidney is normal in echogenicity without hydronephrosis or calculus and measures 8.7 cm in length. IMPRESSION: Unremarkable exam. POS: C
[2019-07-13] MEDS: Apixaban 2.5 MG TAB PO SCH ×2 (09:12→21:56)
[2019-07-13] MEDS: Cyanocobalamin (Vitamin B-12) 1,000 MCG TAB PO SCH (09:13)
[2019-07-13] MEDS: Acetaminophen 325 MG TAB PO PRN (09:13)
[2019-07-13] MEDS: Sodium Chloride 0.65% Nasal 44 ML BOT EA NARE SCH ×3 (09:14→21:54)
--- NOTE | 2019-07-13 12:11 | PDOC.HOSPP ---
- Subjective Subjective: Seen and examined on medical unit with telemetry. Patient very forgetful, complains of IV site pain - in informed her the IV was in position and there was no infections/ redness or problems - a few minutes later she asks why her IV site hurts again. Confused to her baseline. Knows self and that she is in [place]. Does not know city, name of hospital, year, or situation. Responding to ABX per ID. Pvc Loader at bedside, time was given for questions, all answered in detail. - Objective Vital Signs & Weight: Vital Signs (12 hours) Temp Pulse Resp BP Pulse Ox 07/13/19 07:43 98.0 F 80 16 158/99 H 95 07/13/19 03:30 97.5 F L 95 14 181/100 H 95 Weight Admit Weight 121 lb 9.6 oz Weight 121 lb 9.6 oz I&O: 07/12/19 07/13/19 07/14/19 06:59 06:59 06:59 Intake Total 1861.4 2470 Output Total 450 2000 Balance 1411.4 470 Result Diagrams: 07/13/19 04:36 07/13/19 04:36 Radiology Reviewed by me: Yes Hospitalist ROS - Review of Systems All other systems reviewed; all pertinent +/- noted in HPI/Subj - Medication Medications: Active Medications Generic Name Dose Route Start Last Admin Trade Name Freq PRN Reason Stop Dose Admin Acetaminophen 650 mg 07/08/19 19:21 07/13/19 09:13 Tylenol PO 650 mg Q4H PRN Administration Headache/Fever/Mild Pain (1-3) Alprazolam 0.25 mg 07/10/19 10:40 07/11/19 01:42 Xanax PO 0.25 mg PRN PRN Administration Anxiety Apixaban 2.5 mg 07/12/19 21:00 07/13/19 09:12 Eliquis PO 2.5 mg BID MANISH Administration Atorvastatin Calcium 10 mg 07/10/19 21:00 07/12/19 20:08 Lipitor PO 10 mg HS MANISH Administration Cyanocobalamin 1,000 mcg 07/11/19 09:00 07/13/19 09:13 Vitamin B-12 PO 1,000 mcg DAILY MANISH Administration Fluticasone Propionate 0 gm 07/11/19 09:00 07/12/19 09:07 Flonase Nasal [place] NASAL Not Given DAILY MANISH Meropenem 1 gm/ Device 50 mls @ 200 mls/hr 07/12/19 04:00 07/13/19 04:37 IVPB 50 mls 0400,1600 MANISH Administration Melatonin 9 mg 07/10/19 21:00 07/12/19 20:08 Melatonin PO 9 mg HS MANISH Administration Ondansetron HCl 4 mg 07/09/19 10:58 07/10/19 10:20 Zofran Odt PO 4 mg Q6H PRN Administration Nausea/Vomiting Pantoprazole Sodium 40 mg 07/11/19 09:00 07/13/19 09:12 Protonix PO 40 mg DAILY MANISH Administration Quetiapine Fumarate 25 mg 07/10/19 21:00 07/12/19 20:08 Seroquel PO 25 mg HS MANISH Administration Rivastigmine 9.5 mg 07/10/19 12:00 07/12/19 13:09 Exelon Patch TOP 9.5 mg Q24H MANISH Administration Sertraline HCl 50 mg 07/11/19 09:00 07/13/19 09:12 Zoloft PO 50 mg DAILY MANISH Administration Sodium Chloride 10 ml 07/10/19 21:00 07/13/19 09:14 Flush - Normal Saline IVF 10 ml Q12HR MANISH Administration Sodium Chloride 0 ml 07/10/19 15:00 07/13/19 09:14 [place] Nasal [place] 0.65% EA NARE 2 spr TID MANISH Administration Tramadol HCl 50 mg 07/10/19 10:40 07/12/19 15:50 Ultram PO 50 mg PRN PRN Administration Pain - Exam General Appearance: NAD Eye: PERRL ENT: normocephalic atraumatic, moist mucosa Neck: supple, symmetric, no lymphadenopathy Heart: no murmur, no gallops, no rubs Respiratory: no wheezes, no rales, no ronchi, normal chest expansion, no tachypnea Gastrointestinal: soft, non-tender, non-distended, no guarding, no rigidity Extremities: no edema Skin: no lesions, no rashes Neurological: cranial nerve grossly intact, normal sensation to touch, no focal deficits Musculoskeletal: generalized weakness Psychiatric: oriented to person, flat affect Hosp A/P (1) Bacteremia due to Gram-negative bacteria Code(s): R78.81 - BACTEREMIA Status: Acute (2) Concussion Code(s): S06.0X9A - CONCUSSION W LOSS OF CONSCIOUSNESS OF UNSP DURATION, INIT Status: Acute (3) Head injury Code(s): S09.90XA - UNSPECIFIED INJURY OF HEAD, INITIAL ENCOUNTER Status: Acute (4) Sepsis Code(s): A41.9 - SEPSIS, UNSPECIFIED ORGANISM Status: Acute (5) Atrial fibrillation Code(s): I48.91 - UNSPECIFIED ATRIAL FIBRILLATION Status: Chronic (6) Chronic anticoagulation Code(s): Z79.01 - MEAT MOLDER (CURRENT) USE OF ANTICOAGULANTS Status: Chronic (7) Dementia Code(s): F03.90 - UNSPECIFIED DEMENTIA WITHOUT BEHAVIORAL DISTURBANCE Status: Chronic (8) GERD (gastroesophageal reflux disease) Code(s): K21.9 - GASTRO-ESOPHAGEAL REFLUX DISEASE WITHOUT ESOPHAGITIS Status: Chronic - Plan Plan: Medical unit with telemetry ID consultation, recommendations appreciated ABX per ID Gram neg bacteremia, final identification and sensitivity is pending May need extended duration of ABX Continue other home medications as able PT/ OT eval and treat DVT PPX GI PPX DNR status - we will honor patients and family's wishes
[2019-07-13] MEDS: Fluticasone Propionate Nasal Spray 16 gm Bottle NASAL SCH (12:28)
[2019-07-13] MEDS: Rivastigmine 9.5mg/24 Hour PATCH TOP SCH (12:32)
[2019-07-13] MEDS: NS 0.9% w/ 40 MEQ KCL 1,000 ML IV SCH (14:00)
--- NOTE | 2019-07-13 15:40 | PRG ---
DATE OF SERVICE: 07/13/2019 SUBJECTIVE: More alert today, had an episode of diarrhea I believe at home, but not since. Abdomen feels better. The right hand is a little bit tender in the area of laceration that she sustained a few days ago. OBJECTIVE: VITAL SIGNS: Have normalized with normal temperatures. Slight elevation of systolic blood pressure. GENERAL: Appears in no distress. LUNGS: Clear S1 and S2. Regular rate. ABDOMEN: Not distended. Bowel sounds are normalized. EXTREMITIES: The right hand area of laceration with little inflammatory changes. LABORATORY DATA: White cell count is down to 9.1, hemoglobin 12.6, and platelets 267. Creatinine 0.68. The blood cultures yielded Aeromonas hydrophila with a broad susceptibility profile including quinolones as expected. ASSESSMENT AND DISCUSSION: Aeromonas hydrophila, gastroenteritis is the more likely scenario here. Aeromonas can also be associated with soft tissue infections and wound infections, but her wound in the right hand does not appear overtly inflamed, so I tend to favor the gastroenteritis hypothesis. Typically, those are waterborne illnesses with contaminated food or fluids. Recommend transitioning to oral quinolones for another 4 days and then discontinue antimicrobial therapy. Monitor closely wound care progress. Job ID: [id number]
[2019-07-13] MEDS: Carvedilol 3.125 MG TAB PO SCH (17:43)
[2019-07-13] MEDS: Atorvastatin Calcium 10 MG TAB PO SCH (21:54)
[2019-07-13] MEDS: Melatonin 3 MG TAB PO SCH (21:55)
[2019-07-13] MEDS: Cipro 250 MG TAB PO SCH (21:55)
[2019-07-14 05:53] LABS: Anion Gap 10 mmol/L (10-20); BUN (Urea Nitrogen) 9 mg/dL (9.8-20.1); Calc. Creatinine Clearance 55 mL/min (70-130); Calcium 8.7 mg/dL (7.8-10.44); Carbon Dioxide 27 mmol/L (23-31); Chloride 107 mmol/L (98-107); Estimated GFR-MDRD 84; Glucose 102 mg/dL (83-110); Potassium 3.7 mmol/L (3.5-5.1); Sodium 140 mmol/L (136-145)
[2019-07-14] MEDS: Cipro 250 MG TAB PO SCH ×2 (06:16→20:20)
[2019-07-14] MEDS: Carvedilol 3.125 MG TAB PO SCH ×2 (08:52→16:21)
[2019-07-14] MEDS: Cyanocobalamin (Vitamin B-12) 1,000 MCG TAB PO SCH (08:53)
[2019-07-14] MEDS: Apixaban 2.5 MG TAB PO SCH ×2 (08:53→20:20)
[2019-07-14] MEDS: Fluticasone Propionate Nasal Spray 16 gm Bottle NASAL SCH (08:58)
[2019-07-14] MEDS: Sodium Chloride 0.65% Nasal 44 ML BOT EA NARE SCH ×3 (08:58→20:21)
[2019-07-14] MEDS: NS 0.9% w/ 40 MEQ KCL 1,000 ML IV SCH (09:04)
--- NOTE | 2019-07-14 11:10 | PDOC.HOSPP ---
- Subjective Subjective: Seen and examined with aircraft structural repairer at bedside. Feeling better today, confused to her baseline. Asks the same questions only a minute or two apart. Seeking placement on Tuesday. Transitioned to oral ABX per ID. Will D/c IV fluids, encouraged oral intake of food and liquids. - Objective Vital Signs & Weight: Vital Signs (12 hours) Temp Pulse Resp BP Pulse Ox 07/14/19 09:00 98.4 F 104 H 16 166/94 H 96 07/14/19 04:02 97.9 F 81 18 143/95 H 95 07/14/19 00:45 98.0 F 97 16 138/77 94 L Weight Admit Weight 121 lb 9.6 oz Weight 121 lb 9.6 oz I&O: 07/13/19 07/14/19 07/15/19 06:59 06:59 06:59 Intake Total 2470 1649 Output Total 1999 115 Balance 470 499 Result Diagrams: 07/13/19 04:36 07/14/19 05:25 Radiology Reviewed by me: Yes Hospitalist ROS - Review of Systems All other systems reviewed; all pertinent +/- noted in HPI/Subj - Medication Medications: Active Medications Generic Name Dose Route Start Last Admin Trade Name Freq PRN Reason Stop Dose Admin Acetaminophen 650 mg 07/08/19 19:21 07/13/19 09:13 Tylenol PO 650 mg Q4H PRN Administration Headache/Fever/Mild Pain (1-3) Alprazolam 0.25 mg 07/10/19 10:40 07/11/19 01:42 Xanax PO 0.25 mg PRN PRN Administration Anxiety Apixaban 2.5 mg 07/12/19 21:00 07/14/19 08:53 Eliquis PO 2.5 mg BID MANISH Administration Atorvastatin Calcium 10 mg 07/10/19 21:00 07/13/19 21:54 Lipitor PO 10 mg HS MANISH Administration Carvedilol 3.125 mg 07/13/19 17:00 07/14/19 08:52 Coreg PO 3.125 mg BID-WM MANISH Administration Ciprofloxacin 500 mg 07/13/19 20:00 07/14/19 06:16 Cipro PO 500 mg BID@0600,2000 MANISH Administration Cyanocobalamin 1,000 mcg 07/11/19 09:00 02/08/20 08:53 Vitamin B-12 PO 1,000 mcg DAILY MANISH Administration Fluticasone Propionate 0 gm 07/11/19 09:00 07/14/19 08:58 Flonase Nasal [place] NASAL 2 spr DAILY MANISH Administration Melatonin 9 mg 07/10/19 21:00 07/13/19 21:55 Melatonin PO 9 mg HS MANISH Administration Ondansetron HCl 4 mg 07/09/19 10:58 07/10/19 10:20 Zofran Odt PO 4 mg Q6H PRN Administration Nausea/Vomiting Pantoprazole Sodium 40 mg 07/11/19 09:00 07/14/19 08:53 Protonix PO 40 mg DAILY MANISH Administration Quetiapine Fumarate 25 mg 07/10/19 21:00 07/13/19 21:56 Seroquel PO 25 mg HS MANISH Administration Rivastigmine 9.5 mg 07/10/19 12:00 07/13/19 12:32 Exelon Patch TOP 9.5 mg Q24H MANISH Administration Sertraline HCl 50 mg 07/11/19 09:00 07/14/19 08:52 Zoloft PO 50 mg DAILY MANISH Administration Sodium Chloride 10 ml 07/10/19 21:00 07/14/19 08:59 Flush - Normal Saline IVF Not Given Q12HR MANISH Sodium Chloride 0 ml 07/10/19 15:00 07/14/19 08:58 [place] Nasal [place] 0.65% EA NARE 2 spr TID MANISH Administration Tramadol HCl 50 mg 07/10/19 10:40 07/12/19 15:50 Ultram PO 50 mg PRN PRN Administration Pain - Exam General Appearance: NAD Eye: PERRL, anicteric sclera ENT: normocephalic atraumatic, moist mucosa Neck: supple, symmetric, no lymphadenopathy Heart: no murmur, no gallops, no rubs, normal peripheral pulses Respiratory: CTAB, no wheezes, no rales, no ronchi, normal chest expansion, no tachypnea Gastrointestinal: soft, non-tender, no guarding, no rigidity Extremities: no edema Skin: no lesions, no rashes Neurological: cranial nerve grossly intact, no focal deficits Musculoskeletal: generalized weakness Psychiatric: oriented to person, not oriented. negative: oriented to place, oriented to time Psychiatric - other findings: inappropriate affect at times tearful Hosp A/P (1) Bacteremia due to Gram-negative bacteria Code(s): R78.81 - BACTEREMIA Status: Acute (2) Concussion Code(s): S06.0X9A - CONCUSSION W LOSS OF CONSCIOUSNESS OF UNSP DURATION, INIT Status: Acute (3) Head injury Code(s): S09.90XA - UNSPECIFIED INJURY OF HEAD, INITIAL ENCOUNTER Status: Acute (4) Sepsis Code(s): A41.9 - SEPSIS, UNSPECIFIED ORGANISM Status: Acute (5) Atrial fibrillation Code(s): I48.91 - UNSPECIFIED ATRIAL FIBRILLATION Status: Chronic (6) Chronic anticoagulation Code(s): Z79.01 - MANAGER CODE (CURRENT) USE OF ANTICOAGULANTS Status: Chronic (7) Dementia Code(s): F03.90 - UNSPECIFIED DEMENTIA WITHOUT BEHAVIORAL DISTURBANCE Status: Chronic (8) GERD (gastroesophageal reflux disease) Code(s): K21.9 - GASTRO-ESOPHAGEAL REFLUX DISEASE WITHOUT ESOPHAGITIS Status: Chronic - Plan Plan: Medical unit with telemetry Placement on Tuesday at [facility], no bed available until then ID consultation, recommendations appreciated ABX per ID Gram neg bacteremia, sensitive to oral ABX 4 additional days of Ciprofloxacin per ID Continue other home medications as able PT/ OT eval and treat DVT PPX GI PPX DNR status - we will honor patients and family's wishes Ok to remove IV/ D/c IV fluids Encourage oral intake
[2019-07-14] MEDS: Rivastigmine 9.5mg/24 Hour PATCH TOP SCH (11:29)
[2019-07-14] MEDS: Melatonin 3 MG TAB PO SCH (20:20)
[2019-07-14] MEDS: Atorvastatin Calcium 10 MG TAB PO SCH (20:21)
[2019-07-15] MEDS: Cipro 250 MG TAB PO SCH ×2 (05:16→20:11)
[2019-07-15] MEDS: Acetaminophen 325 MG TAB PO PRN (05:16)
[2019-07-15] MEDS: Carvedilol 3.125 MG TAB PO SCH ×2 (09:30→16:29)
[2019-07-15] MEDS: Cyanocobalamin (Vitamin B-12) 1,000 MCG TAB PO SCH (09:31)
[2019-07-15] MEDS: Apixaban 2.5 MG TAB PO SCH ×2 (09:31→20:12)
[2019-07-15] MEDS: Sodium Chloride 0.65% Nasal 44 ML BOT EA NARE SCH ×3 (09:32→20:15)
[2019-07-15] MEDS: Fluticasone Propionate Nasal Spray 16 gm Bottle NASAL SCH (09:33)
[2019-07-15] MEDS: Rivastigmine 9.5mg/24 Hour PATCH TOP SCH (11:48)
--- NOTE | 2019-07-15 19:07 | PDOC.HOSPP ---
- Subjective Encounter Date: 07/15/19 Encounter Time: 19:06 Subjective: Sitting comfortably in the chair. No overnight events. Denies fever, chills, nausea, vomiting, ab pain, or other associated sxs. - Objective Vital Signs & Weight: Vital Signs (12 hours) Temp Pulse Resp BP Pulse Ox 07/15/19 15:04 98.0 F 84 12 121/66 98 07/15/19 11:10 98.0 F 78 20 137/90 98 07/15/19 07:21 98.4 F 89 12 122/82 95 Weight Admit Weight 121 lb 9.6 oz Weight 121 lb 9.6 oz I&O: 07/14/19 07/15/19 07/16/19 06:59 06:59 06:59 Intake Total 1649 1200 Output Total 1150 Balance 499 1200 Result Diagrams: 07/13/19 04:36 07/14/19 05:25 Hospitalist ROS - Review of Systems All other systems reviewed; all pertinent +/- noted in HPI/Subj - Medication Medications: Active Medications Generic Name Dose Route Start Last Admin Trade Name Freq PRN Reason Stop Dose Admin Acetaminophen 650 mg 07/08/19 19:21 07/15/19 05:16 Tylenol PO 650 mg Q4H PRN Administration Headache/Fever/Mild Pain (1-3) Alprazolam 0.25 mg 07/10/19 10:40 07/11/19 01:42 Xanax PO 0.25 mg PRN PRN Administration Anxiety Apixaban 2.5 mg 07/12/19 21:00 07/15/19 09:31 Eliquis PO 2.5 mg BID MANISH Administration Atorvastatin Calcium 10 mg 07/10/19 21:00 07/14/19 20:21 Lipitor PO 10 mg HS MANISH Administration Carvedilol 3.125 mg 07/13/19 17:00 07/15/19 16:29 Coreg PO 3.125 mg BID-WM MANISH Administration Ciprofloxacin 500 mg 07/13/19 20:00 07/15/19 05:16 Cipro PO 500 mg BID@0600,1999 MANISH Administration Cyanocobalamin 1,000 mcg 07/11/19 09:00 07/15/19 09:31 Vitamin B-12 PO 1,000 mcg DAILY MANISH Administration Fluticasone Propionate 0 gm 07/11/19 09:00 07/15/19 09:33 Flonase Nasal [place] NASAL 1 spr DAILY MANISH Administration Melatonin 9 mg 07/10/19 21:00 07/14/19 20:20 Melatonin PO 9 mg HS MANISH Administration Ondansetron HCl 4 mg 07/09/19 10:58 07/10/19 10:20 Zofran Odt PO 4 mg Q6H PRN Administration Nausea/Vomiting Pantoprazole Sodium 40 mg 07/11/19 09:00 07/15/19 09:31 Protonix PO 40 mg DAILY MANISH Administration Quetiapine Fumarate 25 mg 07/10/19 21:00 07/14/19 20:20 Seroquel PO 25 mg HS MANISH Administration Rivastigmine 9.5 mg 07/10/19 12:00 07/15/19 11:48 Exelon Patch TOP 9.5 mg Q24H MANISH Administration Sertraline HCl 50 mg 07/11/19 09:00 07/15/19 09:32 Zoloft PO 50 mg DAILY MANISH Administration Sodium Chloride 10 ml 07/10/19 21:00 07/15/19 09:33 Flush - Normal Saline IVF Not Given Q12HR MANISH Sodium Chloride 0 ml 07/10/19 15:00 07/15/19 16:29 [place] Nasal [place] 0.65% EA NARE 1 spr TID MANISH Administration Tramadol HCl 50 mg 07/10/19 10:40 07/12/19 15:50 Ultram PO 50 mg PRN PRN Administration Pain - Exam General Appearance: awake alert General - other findings: Alert to person Eye: PERRL, anicteric sclera ENT: normocephalic atraumatic, no oropharyngeal lesions, moist mucosa Neck: supple, symmetric, no JVD, no thyromegaly, no lymphadenopathy, no carotid bruit Heart: RRR, no murmur, no gallops, no rubs, normal peripheral pulses Respiratory: CTAB, no wheezes, no rales, no ronchi, normal chest expansion, no tachypnea, normal percussion Gastrointestinal: soft, non-tender, non-distended, normal bowel sounds, no palpable masses, no hepatomegaly, no splenomegaly, no bruit Extremities: no cyanosis, no clubbing, no edema Skin: normal turgor, no lesions, no rashes Neurological: cranial nerve grossly intact, normal sensation to touch, no weakness, no focal deficits, no new deficit Musculoskeletal: normal tone, normal strength, no muscle wasting Psychiatric: normal affect, normal behavior, A&O x 3 Hosp A/P (1) Bacteremia due to Gram-negative bacteria Code(s): R78.81 - BACTEREMIA Status: Acute (2) Concussion Code(s): S06.0X9A - CONCUSSION W LOSS OF CONSCIOUSNESS OF UNSP DURATION, INIT Status: Acute (3) Head injury Code(s): S09.90XA - UNSPECIFIED INJURY OF HEAD, INITIAL ENCOUNTER Status: Acute (4) Sepsis Code(s): A41.9 - SEPSIS, UNSPECIFIED ORGANISM Status: Acute (5) Atrial fibrillation Code(s): I48.91 - UNSPECIFIED ATRIAL FIBRILLATION Status: Chronic (6) Chronic anticoagulation Code(s): 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 Last day of antibiotics is 07/16. Symptoms related to concussion and head injury appear to be resolved, no longer nausea and vomiting Continue other medications from home including Eliquis, atorvastatin, PPI, Seroquel, sertraline PT/OT CODE STATUS: DNR Disposition: Pending placement at [facility]
[2019-07-15] MEDS: Melatonin 3 MG TAB PO SCH (20:12)
[2019-07-15] MEDS: Atorvastatin Calcium 10 MG TAB PO SCH (20:12)
[2019-07-16] MEDS: Cipro 250 MG TAB PO SCH (05:20)
--- NOTE | 2019-07-16 07:50 | PDOC.HOSPP ---
- Subjective Encounter Date: 07/16/19 Encounter Time: 08:30 Subjective: Patient demented, without complaints. No events overnight. Family states that she is back to her baseline. - Objective Vital Signs & Weight: Vital Signs (12 hours) Temp Pulse Resp BP Pulse Ox 07/16/19 04:00 97.9 F 90 16 124/67 95 07/16/19 00:00 98.1 F 77 16 127/76 96 07/15/19 20:00 98.1 F 76 16 130/74 95 Weight Admit Weight 121 lb 9.6 oz Weight 121 lb 9.6 oz I&O: 07/15/19 07/16/19 07/17/19 06:59 06:59 06:59 Intake Total 1200 200 Balance 1200 200 Result Diagrams: 07/13/19 04:36 07/14/19 05:25 Hospitalist ROS - Review of Systems ROS unobtainable: due to mental status - Medication Medications: Active Medications Generic Name Dose Route Start Last Admin Trade Name Freq PRN Reason Stop Dose Admin Acetaminophen 650 mg 07/08/19 19:21 07/15/19 05:16 Tylenol PO 650 mg Q4H PRN Administration Headache/Fever/Mild Pain (1-3) Alprazolam 0.25 mg 07/10/19 10:40 07/11/19 01:42 Xanax PO 0.25 mg PRN PRN Administration Anxiety Apixaban 2.5 mg 07/12/19 21:00 07/15/19 20:12 Eliquis PO 2.5 mg BID MANISH Administration Atorvastatin Calcium 10 mg 07/10/19 21:00 07/15/19 20:12 Lipitor PO 10 mg HS MANISH Administration Carvedilol 3.125 mg 07/13/19 17:00 07/15/19 16:29 Coreg PO 3.125 mg BID-WM MANISH Administration Ciprofloxacin 500 mg 07/13/19 20:00 07/16/19 05:20 Cipro PO 07/17/19 23:59 500 mg BID@0600,2000 MANISH Administration Cyanocobalamin 1,000 mcg 07/11/19 09:00 07/15/19 09:31 Vitamin B-12 PO 1,000 mcg DAILY MANISH Administration Fluticasone Propionate 0 gm 07/11/19 09:00 07/15/19 09:33 Flonase Nasal [place] NASAL 1 spr DAILY MANISH Administration Melatonin 9 mg 07/10/19 21:00 07/15/19 20:12 Melatonin PO 9 mg HS MANISH Administration Ondansetron HCl 4 mg 07/09/19 10:58 07/10/19 10:20 Zofran Odt PO 4 mg Q6H PRN Administration Nausea/Vomiting Pantoprazole Sodium 40 mg 07/11/19 09:00 07/15/19 09:31 Protonix PO 40 mg DAILY MANISH Administration Quetiapine Fumarate 25 mg 07/10/19 21:00 07/15/19 20:12 Seroquel PO 25 mg HS MANISH Administration Rivastigmine 9.5 mg 07/10/19 12:00 07/15/19 11:48 Exelon Patch TOP 9.5 mg Q24H MANISH Administration Sertraline HCl 50 mg 07/11/19 09:00 07/15/19 09:32 Zoloft PO 50 mg DAILY MANISH Administration Sodium Chloride 10 ml 07/10/19 21:00 07/15/19 20:14 Flush - Normal Saline IVF Not Given Q12HR MANISH Sodium Chloride 0 ml 07/10/19 15:00 07/15/19 20:15 [place] Nasal [place] 0.65% EA NARE 2 spr TID MANISH Administration Tramadol HCl 50 mg 07/10/19 10:40 07/12/19 15:50 Ultram PO 50 mg PRN PRN Administration Pain - Exam General Appearance: NAD, awake alert ENT: moist mucosa ENT - other findings: no swelling of neck Heart: RRR, no murmur, no gallops, no rubs Respiratory: CTAB, no wheezes, no rales, no ronchi Gastrointestinal: soft, non-tender, non-distended, normal bowel sounds Psychiatric: normal affect, oriented to person. negative: oriented to place, oriented to time Hosp A/P (1) Bacteremia due to Gram-negative bacteria Code(s): R78.81 - BACTEREMIA Status: Acute (2) Sepsis Code(s): A41.9 - SEPSIS, UNSPECIFIED ORGANISM Status: Resolved (3) Concussion Code(s): S06.0X9A - CONCUSSION W LOSS OF CONSCIOUSNESS OF UNSP DURATION, INIT Status: Resolved (4) Atrial fibrillation Code(s): I48.91 - UNSPECIFIED ATRIAL FIBRILLATION Status: Chronic (5) Chronic anticoagulation Code(s): Z79.01 - CARE HOME (CURRENT) USE OF ANTICOAGULANTS Status: Chronic (6) GERD (gastroesophageal reflux disease) Code(s): K21.9 - GASTRO-ESOPHAGEAL REFLUX DISEASE WITHOUT ESOPHAGITIS Status: Chronic (7) Dementia Code(s): F03.90 - UNSPECIFIED DEMENTIA WITHOUT BEHAVIORAL DISTURBANCE Status: Chronic (8) Neck swelling Code(s): R22.1 - LOCALIZED SWELLING, MASS AND LUMP, NECK Status: Acute - Plan Patient with bacteremia from gastroenteritis, finish one more day Cipro tomorrow per ID then stop abx Approved for SNF, can d/c today
[2019-07-16 07:55] VITALS: BP 140/90; TEMP 98.4
[2019-07-16] MEDS: Carvedilol 3.125 MG TAB PO SCH (09:25)
[2019-07-16] MEDS: Apixaban 2.5 MG TAB PO SCH (09:25)
[2019-07-16] MEDS: Fluticasone Propionate Nasal Spray 16 gm Bottle NASAL SCH (09:25)
[2019-07-16] MEDS: Cyanocobalamin (Vitamin B-12) 1,000 MCG TAB PO SCH (09:25)
[2019-07-16] MEDS: Sodium Chloride 0.65% Nasal 44 ML BOT EA NARE SCH (09:26)
--- NOTE | 2019-07-16 16:32 | DIS ---
DATE OF ADMISSION: 07/10/2019 DATE OF DISCHARGE: 07/16/2019 PRIMARY CARE PHYSICIAN: Pan Briggs MD. REASON FOR ADMISSION: Head injury, on anticoagulation. DISCHARGE DIAGNOSES: 1. Gastroenteritis with Aeromonas hydrophila. 2. Bacteremia secondary to #1. 3. Fall with head injury and concussion. 4. Sepsis, resolved. 5. Paroxysmal atrial fibrillation, on chronic anticoagulation. 6. Gastroesophageal reflux disease. 7. Dementia. 8. Hypertension. 9. Osteoporosis. PROCEDURES: 1. CT of the brain x3 without any acute intracranial abnormalities or bleeding. 2. CT of the abdomen and pelvis showing no acute abnormalities. 3. Soft tissue CT of the neck and C-spine showing no acute abnormalities. 4. Abdominal ultrasound showing unremarkable right upper quadrant ultrasound exam. CONSULTATIONS: Infectious Disease, Dr. Gutierrez. SUMMARY OF HOSPITAL COURSE: This is an 84-year-old white female with a history of dementia who came in after a witnessed fall from her bed, transferring to a wheelchair, hitting her right occipital lobe on her dresser. No loss of consciousness. She was brought to the emergency room, had a CT of the head, which was negative. Due to being on Eliquis, she was observed in the hospital, had a repeat CT 6 hours later, which showed no bleeding. She was going to be discharged back to her assisted living. However, the patient started getting significant abdominal pain, intractable nausea and vomiting, unable to tolerate any oral fluids. She also became very tachycardic. She was admitted to the hospital. At that point, her tachycardia worsened in spite of IV fluids and she spiked a fever of 102. Blood cultures were drawn. She was put on antibiotics. The patient eventually grew back Aeromonas hydrophila from both her blood cultures. Dr. Gutierrez of Infectious Disease was consulted. He determined this was likely gastroenteritis in origin and switched her to oral ciprofloxacin. The patient did have at the same time of her fever, she had some sudden onset swelling of her anterior throat right over her laryngeal cartilage without any breathing problems due to her history of fall and trauma. CT of the C-spine and soft tissues of the neck was done. There was no evidence of fluid collection, abscess or cervical spine injury. The swelling eventually went down by itself. She had no rashes or mucous membrane swelling or swelling anywhere else to indicate an allergic reaction and she had not started any new medications at the time when she did get the swelling. The patient was doing much better by the day of discharge. She was eating well, was having no more symptoms, was back to her baseline mental status. Due to her progressive dementia, her family had been looking into moving her to a memory care unit from her current assisted living. Working with the case management, we were able to set her up with [facility] for residential facility and then we will need to transition to [facility] memory unit after that. DISCHARGE MANAGEMENT: Discharged to residential facility at [facility]. ACTIVITY: As tolerated. DIET: Regular diet with NDD3 chopped textures with extra sauce and gravy and a feeder and supplements of Mighty shake with each meal three times a day. THERAPY: Occupational, Physical and Speech Therapy. FOLLOWUP: Follow up with primary care physician in the next couple of weeks. DISCHARGE MEDICATIONS: 1. Ciprofloxacin 500 mg twice a day until tomorrow evening to complete antibiotic course. 2. Carvedilol 3.125 mg twice a day, this is new medication. 3. Alprazolam 0.25 mg as needed for anxiety. 4. Eliquis 2.5 mg twice a day. 5. Atorvastatin 10 mg at night. 6. Benzoate 100 mg as needed for cough. 7. Vitamin B12 1000 mcg daily. 8. Premarin cream 1 g vaginally as directed. 9. Flonase nasal spray 2 sprays in each nostril daily. 10. Meclizine 12.5 mg as needed for dizziness. 11. Melatonin 10 mg at night. 12. Zofran as needed for nausea, vomiting. 13. Protonix 40 mg daily. 14. Seroquel 25 mg at night. 15. Exelon patch 9.5 mg applied once a day. 16. Sertraline 50 mg daily. 17. Saline nasal spray three times a day. 18. Tramadol as needed for pain. 19. Senokot-S 2 tablets twice a day as needed for constipation. TIME SPENT: Arranging the details of this discharge took 35 minutes. Job ID: [id number]
--- NOTE | 2019-07-18 06:11 | PQF ---
HERMELINDO HERNANDEZ RYAN ANDREW MD [id number] [address] [place] [address] [id number] CLINICAL DOCUMENTATION CLARIFICATION FORM: POST DISCHARGE Addendum to original discharge summary date: ____ Late entry note date: __ DATE:07/18/2019 ATTN: Richard Martinez Please exercise your independent, professional judgment in responding to the clarification form. Clinical indicators are provided on the bottom of this form for your review Diagnosis: Sepsis Present on Admission (POA): [ ] Yes [ X ] No [ ] Unable to determine Coding guidelines require hospitals to identify whether a diagnosis was present on admission (POA) or not. To accurately assign the appropriate POA indicator, this information must be clearly documented within the medical record. CLINICAL INDICATORS - SIGNS / SYMPTOMS / LABS Microbiology Blood Culture / Aeromonas Hydrophila/Caviae positive Laboratory hematology 07/10 WBC 13.6, Neutrophils 86.2 % Vital sign 07/10 Temp 97.2, Pulse 103, Resp 22, O2 sat 94%, BP 162/99 Hospitalist PN p1 2 Dr Fitch Pt started shivering uncontrollably, but was awake and responsive the whole time. Temp recheck and now 102. No focal infectious signs and Ucx is negative. WBC up a bit Hospitalist PN p1 2/ Dr Fitch Pt with continued vomiting yesterday, didn't hold anything down Hospitalist PN p6 2/5 Dr Fitch May consider ENT consult for their thoughts on swelling in setting of SIRS if doesn't continue improving DS p1 2/ Dr Fitch Gastroenteritis with Aeromonas hydrophila DS p1 2 Dr Fitch Sepsis, resolved RISK FACTORS: H&P p1 2/2 84 year old Female Consult p1 2 Vascular Dementia Consult p2 2/ Gastroenteritis, with gram-negative bacteremia TREATMENT: MAR 2/ IV Meropenim 1gm MAR 2/ Zofran 4mg po MAR 2/ IV Protonox 40mg MAR 2/4 IV Vancomycin 1gm AUG 05 IVF bolus 1L ID consult 07/12 Zay Gutierrez Hospitalist PN p1 07/10 Blood cultures obtained Hospitalist PN p1 07/10 Check lactic acid (This form is maintained as a part of the permanent medical record) 2014 [employer], [employer]. All Rights Reserved [email or web address]
--- NOTE | 2019-07-18 06:13 | PQF ---
HERMELINDO HERNANDEZ RYAN ANDREW MD [id number] [address] [place] [address] [id number] CLINICAL DOCUMENTATION CLARIFICATION FORM: POST DISCHARGE Addendum to original discharge summary date: ____ Late entry note date: __ DATE:07/18/2019 ATTN: Richard Martinez Please exercise your independent, professional judgment in responding to the clarification form. Clinical indicators are provided on the bottom of this form for your review Please check appropriate box(s): Encephalopathy: Type: [ X ] Acute [ ] Subacute [ ] Chronic Etiology: [ ] Metabolic [ ] Toxic [ X ] Septic [ ] Unspecified [ X ] in the setting of underlying dementia [ ] Other (please specify) [ ] Transient Alteration of Awareness [ ] Other diagnosis [ ] Unable to determine In addition, please specify: Present on Admission (POA): [ ] Yes [ X ] No [ ] Unable to determine For continuity of documentation, please document condition throughout progress notes and discharge summary. Thank You. CLINICAL INDICATORS - SIGNS / SYMPTOMS / LABS Hospitalist PN p1 2 Dr Fitch Pt started shivering uncontrollably, but was awake and responsive the whole time. Temp recheck and now 102. No focal infectious signs and Ucx is negative. WBC up a bit Hospitalist p1 07/13 Dr. Dotson Pt very forgetful, complains of IV site pain in informed her the IV was in position and there was no infections/redness or problems- a few minutes later she ask why her IV sites hurts again Hospitalist p1 07/13 Dr. Dotson Confused to her baseline. Knows self and that she is in [place]. Does not know city, name of hospital, year or situation H&P p2 2/ [employer], [employer] Neuro: The patient is oriented to person and place. She is pleasantly confused RISK FACTORS H&P p1 2/ 84 year old Female Consult p1 2 Vascular Dementia Consult p2 07/12 Gastroenteritis, with gram-negative bacteremia Hospitalist PN p6 07/13 Sepsis TREATMENTS: AUG 05 IV Meropenem 1gm AUG 05 Zofran 4mg po 07/10 IV Protonix 40mg AUG 05 IV Vancomycin 1gm AUG 05 IVF bolus 1L AUG 05 Melatonin 9mg po AUG 05 Xanax 0.25mg po (This form is maintained as a part of the permanent medical record) 2014 [employer], [employer]. All Rights Reserved [email or web address]
== END 2019-07-16 11:12 | DRG 371 ==
LOC: ERS 14:06 → ERHOLD 17:09 → 2SE 07-09 16:26 → OBSVTOIN 07-10 11:28
PROVIDERS: ADMIT Internal Medicine; ATTEND Internal Medicine
DX: A04.8 Other specified bacterial intestinal infections (principal); G93.41 Metabolic encephalopathy; A41.59 Other Gram-negative sepsis; R65.20 Severe sepsis without septic shock; Z66 Do not resuscitate; S06.0X0A Concussion without loss of consciousness, initial encounter; W05.0XXA Fall from non-moving wheelchair, initial encounter; I48.0 Paroxysmal atrial fibrillation; K21.9 Gastro-esophageal reflux disease without esophagitis; I10 Essential (primary) hypertension; M81.0 Age-related osteoporosis without current pathological fracture; R22.1 Localized swelling, mass and lump, neck; F32.9 Major depressive disorder, single episode, unspecified; F41.9 Anxiety disorder, unspecified; F01.50 Vascular dementia, unspecified severity, without behavioral disturbance, psychotic disturbance, mood disturbance, and anxiety; Z90.710 Acquired absence of both cervix and uterus; Z88.1 Allergy status to other antibiotic agents; Z88.8 Allergy status to other drugs, medicaments and biological substances; Z79.899 Other long term (current) drug therapy; Z79.01 Long term (current) use of anticoagulants
CPT/HCPCS: 36415; 70450; 70491; 71045; 74177; 76705; 80048; 80053; 80202; 81001; 83605; 85025; 87040; 87077; 87086; 87149; 87186; 87804; 96361; 96374; 96375; A4353; C9113; J0360; J2185; J3370; J3480; L0120; Q0162; Q9967

== ENCOUNTER 2019-10-23 07:23 | Emergency (ER) | payer MEDICARE ==
[2019-10-23 07:52] LABS: #Basophils 0.1 thou/uL (0.0-0.2); #Eosinphils 0.1 thou/uL (0.0-0.7); #Lymphocytes 1.9 thou/uL (1.20-3.40); #Monocytes 0.7 thou/uL (0.11-0.59); %Basophils 0.6 % (0.0-1.0); %Eosinophils 1.3 % (0.0-10.0); %Lymphocytes 19.8 % (21.0-51.0); %Monocytes 6.7 % (0.0-10.0); %Neutrophils 71.6 % (42.0-75.0); Hemoglobin 11.9 g/dL (12.0-16.0); Mean Corpuscular HGB CONC 32.5 g/dL (32.0-36.0); Mean Corpuscular Hemoglobin 33.1 pg (27.0-31.0); Mean Platelet Volume 6.5 fL (7.4-10.4); Platelet Count 251 thou/uL (130-400); Red Blood Cell (RBC) Count 3.58 mill/uL (4.20-5.40); White Blood Cell (WBC) Count 9.8 thou/uL (4.8-10.8)
--- NOTE | 2019-10-23 07:56 | RAD ---
Chest one view HISTORY: Fall. COMPARISON: 07/10/2019. FINDINGS: Cardiac silhouette and pulmonary vasculature are unremarkable. Rightward convex curvature o f the thoracic spine is again demonstrated. No lobar consolidation. Lung markings extend beyond the skinfold running vertically over the lateral aspect of the left hemithorax that mimics a pneumothorax. monitoring specialist leads overlie the chest. IMPRESSION : No active cardiopulmonary abnormalities are demonstrated.
--- NOTE | 2019-10-23 07:57 | RAD ---
Right forearm 2 views HISTORY: Injury. FINDINGS: The radius and ulna are intact. No acute fracture, dislocation, or radiopaque foreign umer s. Focal soft tissue prominence over the dorsal aspect of the distal forearm may represent an acute soft tissue injury. IMPRESSION : No acute osseous abnormalities are demonstrated.
--- NOTE | 2019-10-23 07:58 | RAD ---
Radiograph pelvis one view: DATE: 10/23/2019 HISTORY: 84-year-old female status post acute pelvic trauma from fall. FINDINGS: Pelvic ring appears to be grossly intact. No grossly displaced fracture is identified. A mildly displ aced or nondisplaced fracture could be obscured by overlying bowel gas and stool regarding the sacrum. No dislocation or high-grade DJD of the hips. IMPRESSION: Negative
--- NOTE | 2019-10-23 08:02 | CT ---
CT head noncontrast HISTORY: Altered mental status. Fall. COMPARISON: 07/09/2019. FINDINGS: There is no evidence of acute intracranial hemorrhage or infarct. Diffuse cortical atrophy and chronic ischemic small vessel disease are similar in appearance to the p revious exam. No mass effect or shift of midline structures. Visualized paranasal sinuses remain well aerated. IMPRESSION : Chronic-type findings are stable. No acute intracranial abnormalities are demonstrated.
[2019-10-23 08:14] LABS: ALT (SGPT) 9 U/L (8-55); AST (SGOT) 16 U/L (5-34); Albumin 3.9 g/dL (3.4-4.8); Alkaline Phosphatase 103 U/L (40-110); Anion Gap 14 mmol/L (10-20); BUN (Urea Nitrogen) 22 mg/dL (9.8-20.1); Bilirubin, Total 0.8 mg/dL (0.2-1.2); CK (CPK) 140 U/L (29-168); Calc. Creatinine Clearance 0 mL/min (70-130); Calcium 8.6 mg/dL (7.8-10.44); Carbon Dioxide 26 mmol/L (23-31); Chloride 103 mmol/L (98-107); Estimated GFR-MDRD 46; Globulin 2.5 g/dL (2.4-3.5); Glucose 93 mg/dL (83-110); Potassium 4.1 mmol/L (3.5-5.1); Protein, Total 6.4 g/dL (6.0-8.3); Sodium 139 mmol/L (136-145)
[2019-10-23 08:46] LABS: Bilirubin Negative (Negative); Blood, Urine Negative (Negative); Clarity Turbid (Clear); Glucose, Urine (Dipstick) Normal (Negative); Leukocyte 500 Leu/uL (Negative); Nitrite Negative (Negative); Protein, Urine (Dipstick) 20 mg/dL (Neg-Trace); Squamous Epithelial None Seen HPF (0-3); Urobilinogen Normal mg/dL (Less than 2); WBC/HPF Greater than 50 HPF (0-3)
[2019-10-23 09:03] LABS: Bacteria/HPF 3+ HPF (None Seen)
--- NOTE | 2019-10-24 15:53 | EKG ---
Test Reason : Blood Pressure : / mmHG Vent. Rate : 084 BPM Atrial Rate : 084 BPM P-R Int : 150 ms QRS Dur : 080 ms QT Int : 366 ms P-R-T Axes : 076 -37 017 degrees QTc Int : 432 ms Normal sinus rhythm Left axis deviation Confirmed by HERMELINDO GARCIA DO ([id number]), acquisitions editor SHANNA TRAYLOR ([id number]) on 10/24/2019 3:52:55 PM Referred By: Confirmed By:HERMELINDO GARCIA DO
== END 2019-10-23 11:40 ==
LOC: ERS 07:23
DX: N39.0 Urinary tract infection, site not specified (principal); I12.9 Hypertensive chronic kidney disease with stage 1 through stage 4 chronic kidney disease, or unspecified chronic kidney disease; N18.3 Chronic kidney disease, stage 3 (moderate); K21.9 Gastro-esophageal reflux disease without esophagitis; I48.91 Unspecified atrial fibrillation; F03.90 Unspecified dementia, unspecified severity, without behavioral disturbance, psychotic disturbance, mood disturbance, and anxiety; M81.0 Age-related osteoporosis without current pathological fracture; M41.9 Scoliosis, unspecified; F32.9 Major depressive disorder, single episode, unspecified; F41.9 Anxiety disorder, unspecified; Z79.01 Long term (current) use of anticoagulants; Z79.899 Other long term (current) drug therapy; W19.XXXA Unspecified fall, initial encounter; Y92.129 Unspecified place in nursing home as the place of occurrence of the external cause
CPT/HCPCS: 36415; 51701; 70450; 71045; 72170; 80053; 81003; 81015; 82550; 84484; 85025; 93005; A4353

== ENCOUNTER 2019-12-21 16:20 | Emergency (ER) | payer BC, MEDICARE ==
--- NOTE | 2019-12-21 16:57 | CT ---
CT head noncontrast HISTORY: Fall. Injury. COMPARISON: 10/23/2019. FINDINGS: There is no evidence of acute intracranial hemorrhage or infarct. The ventricles appear nor mal in size, shape and position. Diffuse cortical atrophy and chronic ischemic small vessel disease are again demonstrated. A lobular hyperdense fluid collection associated with the right frontal scalp measures up to 2.6 cm g reatest diameter. Visualized paranasal sinuses remain well aerated. IMPRESSION : Right frontal scalp hematoma. No acute intracranial abnormalities are demonstrated.
[2019-12-21 18:56] LABS: #Eosinphils 0.1 thou/uL (0.0-0.7); #Lymphocytes 2.2 thou/uL (1.20-3.40); #Monocytes 0.7 thou/uL (0.11-0.59); #Neutrophils 5.8 thou/uL (1.40-6.50); %Basophils 0.2 % (0.0-1.0); %Eosinophils 1.4 % (0.0-10.0); %Lymphocytes 24.7 % (21.0-51.0); %Monocytes 7.5 % (0.0-10.0); %Neutrophils 66.3 % (42.0-75.0); Hemoglobin 11.1 g/dL (12.0-16.0); Mean Corpuscular Hemoglobin 33.3 pg (27.0-31.0); Mean Platelet Volume 6.8 fL (7.4-10.4); Platelet Count 274 thou/uL (130-400); RBC Distribution Width 11.8 % (11.5-14.5); Red Blood Cell (RBC) Count 3.32 mill/uL (4.20-5.40); White Blood Cell (WBC) Count 8.8 thou/uL (4.8-10.8)
[2019-12-21 19:18] LABS: ALT (SGPT) 7 U/L (8-55); AST (SGOT) 16 U/L (5-34); Albumin 3.6 g/dL (3.4-4.8); Alkaline Phosphatase 99 U/L (40-110); Anion Gap 9 mmol/L (10-20); BUN (Urea Nitrogen) 19 mg/dL (9.8-20.1); Bilirubin, Total 0.5 mg/dL (0.2-1.2); Calc. Creatinine Clearance 0 mL/min (70-130); Calcium 8.6 mg/dL (7.8-10.44); Carbon Dioxide 28 mmol/L (23-31); Chloride 108 mmol/L (98-107); Estimated GFR-MDRD 57; Globulin 2.7 g/dL (2.4-3.5); Glucose 102 mg/dL (83-110); Potassium 3.7 mmol/L (3.5-5.1); Protein, Total 6.3 g/dL (6.0-8.3); Sodium 141 mmol/L (136-145)
--- NOTE | 2019-12-21 19:26 | RAD ---
SINGLE VIEW OF THE CHEST: 12/21/19 COMPARISON: 10/23/19 HISTORY: Trauma with chest pain. FINDINGS: Single view of the chest shows a normal sized cardiomediastinal silhouette. There is no evidence of c onsolidation, mass, or pleural effusion. Scoliotic curvature is seen in the spine. IMPRESSION: No evidence of acute cardiopulmonary disease. POS: EAA
--- NOTE | 2019-12-21 19:27 | RAD ---
TWO VIEWS OF THE RIGHT HIP: 12/21/19 HISTORY: Trauma with right hip pain. Patient was found on the floor. FINDINGS: Two views of the right hip shows no evidence of acute fracture or dislocation. There is a large hemat brittani overlying the greater trochanter. No degenerative changes are seen in the right hip. IMPRESSION: No evidence of acute osseous abnormality. POS: EAA
--- NOTE | 2019-12-21 19:29 | RAD ---
SINGLE VIEW OF THE PELVIS: 12/21/19 COMPARISON: 10/23/19. HISTORY: Patient was found on the floor after a fall. Pelvic pain. FINDINGS: Single view of the pelvis shows no evidence of acute fracture or dislocation. No degenerative changes are seen in either hip. There is a large hematoma/soft tissue swelling overlying the right greater t rochanter. IMPRESSION: No evidence of acute osseous abnormality. POS: EAA
--- NOTE | 2019-12-21 22:05 | CT ---
CT pelvis noncontrast HISTORY: Pelvic pain. Fall. Injury. FINDINGS: There are degenerative changes of the lower lumbar spine and hips. No acute fracture or dis location are apparent. Metallic clips lie immediately anterior to the lumbosacral junction. There is prominent fluid stranding and pockets of fluid within the subcutaneous tissues posterolatera l to the greater trochanter of the right hip. IMPRESSION : Extensive soft tissue injury and hematoma component at the right posterior hip. No acute osseous abno rmalities are demonstrated.
== END 2019-12-21 22:53 ==
LOC: ERS 16:20
DX: S09.90XA Unspecified injury of head, initial encounter (principal); I48.91 Unspecified atrial fibrillation; K21.9 Gastro-esophageal reflux disease without esophagitis; I10 Essential (primary) hypertension; F03.90 Unspecified dementia, unspecified severity, without behavioral disturbance, psychotic disturbance, mood disturbance, and anxiety; F41.9 Anxiety disorder, unspecified; F32.9 Major depressive disorder, single episode, unspecified; Z79.899 Other long term (current) drug therapy; Z79.01 Long term (current) use of anticoagulants; W07.XXXA Fall from chair, initial encounter
CPT/HCPCS: 36415; 70450; 71045; 72170; 72192; 80053; 84484; 85025; 93005